=== PATIENT | female | born 1960 | race Caucasian/White ===

== ENCOUNTER 2025-05-24 16:19 | Observation (INO) | payer MEDICARE, SELFPAY ==
[2025-05-24] VITALS (10 sets, daily range): BP systolic 126–164; BP diastolic 46–75; PULSE 74–104; RESP 16–23; TEMP 36.9–37.3; O2SAT 87–99; BMI 53.1; BMI 58.8
--- NOTE | 2025-05-24 16:29 | CT_ITS ---
PROCEDURE INFORMATION: Exam: CT Abdomen And Pelvis With Contrast Exam date and time: 05/24/2025 5:22 PM Age: 65 years old Clinical indication: Abdominal pain; Additional info: Lower abdominal pain, n/v TECHNIQUE: Imaging protocol: Computed tomography of the abdomen and pelvis with contrast. Radiation optimization: All CT scans at this facility use at least one of these dose optimization techniques: automated exposure control; mA and/or kV adjustment per patient size (includes targeted exams where dose is matched to clinical indication); or iterative reconstruction. Contrast material: ISOVUE; Contrast volume: 90 ml; Contrast route: IV; COMPARISON: No relevant prior studies available. FINDINGS: Lungs: Calcified granuloma in the left lung base. Mild atelectasis of the left lung base. Pleural spaces: Small left pleural effusion. Heart: Mitral annular calcifications. Diaphragm: Moderate hiatal hernia. Liver: Unremarkable liver. Gallbladder and biliary ducts: Cholelithiasis. No biliary ductal dilation. Pancreas: Fatty replacement of pancreatic parenchyma. Spleen: Unremarkable spleen. Adrenal glands: Unremarkable adrenal glands. Kidneys and ureters: Symmetrically enhancing kidneys. Somewhat atrophic kidneys. No hydronephrosis. No urolithiasis. Stomach and bowel: No bowel obstruction. Colonic diverticulosis. Mild fat stranding along a diverticulum in the mid sigmoid colon. No extraluminal free air or abscess. Appendix: Normal. Intraperitoneal space: No free air. No free fluid. Vasculature: Moderate atherosclerotic calcification of the normal-caliber abdominal aorta. Lymph nodes: No enlarged lymph nodes. Urinary bladder: Unremarkable urinary bladder. Reproductive: Surgically absent uterus. No adnexal mass. Bones/joints: No acute osseous abnormality. Multilevel chronic degenerative changes of the spine. Soft tissues: Incompletely visualized fat-containing umbilical hernia with neck measuring 2.7 cm. Subcutaneous induration throughout the partially visualized left mid anterior abdominal wall. No fluid collection/abscess, though this region is largely excluded from field of view due to body habitus. IMPRESSION: 1. Mild fat stranding along a diverticulum in the mid sigmoid colon, suspicious for mild uncomplicated diverticulitis. 2. Subcutaneous induration throughout the partially visualized left mid anterior abdominal wall. No fluid collection/abscess is visualized, though this region is largely excluded from field of view due to body habitus. Recommend correlation for cellulitis. 3. Small left pleural effusion.
--- NOTE | 2025-05-24 16:29 | CT_ITS ---
PROCEDURE INFORMATION: Exam: CT Head Without Contrast Exam date and time: 05/24/2025 5:19 PM Age: 65 years old Clinical indication: Altered mental status/memory loss; Additional info: AMS TECHNIQUE: Imaging protocol: Computed tomography of the head without contrast. Total images: 659 Radiation optimization: All CT scans at this facility use at least one of these dose optimization techniques: automated exposure control; mA and/or kV adjustment per patient size (includes targeted exams where dose is matched to clinical indication); or iterative reconstruction. COMPARISON: No relevant prior studies available. FINDINGS: Brain: No acute intracranial hemorrhage, midline shift, or mass. Mild cortical atrophy. Remote left frontoparietal infarcts with encephalomalacia/gliosis. Additional mild remote white matter small-vessel ischemic changes. No acute territorial infarct. Basilar cisterns are preserved. Cerebral ventricles: No ventriculomegaly. Paranasal sinuses: Visualized sinuses are unremarkable. No fluid levels. Mastoid air cells: Visualized mastoid air cells are well aerated. Orbital cavities: Bilateral orbital lens replacement. Bones: Unremarkable. No acute fracture. Soft tissues: Unremarkable. Vasculature: Severe calcifications bilateral intracranial internal carotid arteries. Left intracranial internal carotid artery stent. IMPRESSION: 1. No acute intracranial abnormality. 2. Chronic intracranial findings.
--- NOTE | 2025-05-24 16:30 | CT_ITS ---
PROCEDURE INFORMATION: Exam: CTA Chest With Contrast Exam date and time: 05/24/2025 5:22 PM Age: 65 years old Clinical indication: Shortness of breath; Additional info: SOA TECHNIQUE: Imaging protocol: Computed tomographic angiography of the chest with contrast. Exam focused on the arteries. 3D rendering (Not supervised by radiologist): MIP and/or 3D reconstructed images were created by the technologist. Radiation optimization: All CT scans at this facility use at least one of these dose optimization techniques: automated exposure control; mA and/or kV adjustment per patient size (includes targeted exams where dose is matched to clinical indication); or iterative reconstruction. Contrast material: ISO 370; Contrast volume: 90 ml; Contrast route: INTRAVENOUS (IV); COMPARISON: No relevant prior studies available. FINDINGS: Tubes, catheters and devices: None. Pulmonary arteries: No central pulmonary embolism. Pulmonary arteries are normal in caliber. Aorta: No aortic aneurysm. No aortic dissection. Thyroid: Unremarkable. Trachea: Patent trachea and central airways. Lungs: No consolidation. No suspicious nodule. Calcified granuloma in the left lung base. Mild atelectasis of the left lung base. Pleural spaces: No pneumothorax. Small left pleural effusion. No right pleural effusion. Heart: No cardiomegaly. No pericardial effusion. Mitral annular calcifications are present. Esophagus: Moderate hiatal hernia and fluid-filled esophagus. Mediastinal space: Unremarkable. Lymph nodes: No mediastinal, hilar, or axillary lymphadenopathy. Bones/joints: No acute osseous abnormality. Multilevel chronic degenerative changes of the spine. Soft tissues: Unremarkable. IMPRESSION: 1. No central pulmonary embolism. Evaluation of the lobar, segmental, and subsegmental pulmonary artery branches is essentially nondiagnostic due to quantum mottle artifact secondary to patient body habitus, suboptimal contrast bolus, and motion artifact. Consider lower extremity Dopplers to exclude a potential embolic source or nuclear medicine perfusion examination if there is persistent high clinical suspicion. 2. Small left pleural effusion and mild atelectasis of the left lung base. 3. Moderate hiatal hernia and fluid-filled esophagus, concerning for reflux.
--- NOTE | 2025-05-24 16:34 | ED_ITS ---
Discharge Plan Disposition Patient Disposition: Admitted Condition: Fair Clinical Impressions Clinical Impression: Diverticul disease small and large intestine, no perforati or abscess Discharge ED Provider: Heidi Callaway General Chief Complaint: Weakness Stated Complaint: Dizzy, Weakness, Difficulty breathing Time Seen by Provider: 05/24/25 16:20 History of Present Illness HPI narrative: This is a 65-year-old female with no reported past medical history presenting the emergency department with EMS for altered mental status. They were called to the home for shortness of breath. Patient lives at home by herself. EMS reports that the home was well-kept, not in disarray. Patient normally mobilizes with a wheelchair. She states she went to religion this morning and then suddenly began to experience chills. She is currently complaining of epigastric pain with nausea. Denies any current headache, chest pain, shortness of breath, dysuria. She reports her last fall was in August. Home medications brought to the bedside by EMS including Brilinta, Lasix, hydrocodone, gabapentin, among others. Related Data Home Medications ?Medication ?Instructions ?Recorded ?Confirmed citalopram 40 mg tablet 40 mg PO DAILY 05/24/2501/09 ferrous sulfate 325 mg (65 mg 325 mg PO DAILY 05/24/25 05/24/25 iron) tablet (FeroSul) furosemide 40 mg tablet 40 mg PO DAILY 05/24/2501/09 gabapentin 300 mg capsule 300 mg PO TID 05/24/2505/24 insulin aspar prot-insulin aspart 50 unit SQ BID 05/2405/24/25 100 unit/mL (70-30) subcutaneous pen (Novolog Mix 70-30FlexPen U-100) levothyroxine 112 mcg tablet 112 mcg PO DAILY 05/24/25 05/24/25 losartan 25 mg tablet 25 mg PO DAILY 05/24/2501/09 nitroglycerin 0.4 mg sublingual 0.4 mg sublingual Q5M PRN Chest 05/24/25 05/24/25 tablet Pain omeprazole 40 mg capsule,delayed 40 mg PO DAILY 05/24/25 release rosuvastatin 20 mg tablet 20 mg PO HS 05/24/25 5 ticagrelor 60 mg tablet (Brilinta) 60 mg PO DAILY 01/0905/24/25 Allergies Allergy/AdvReac Type Severity Reaction Status Date / Time amoxicillin Allergy Hives Verified 05/24/25 21:21 ciprofloxacin Allergy Hives Verified 05/24/25 21:21 metformin Allergy Rash Verified 05/24/25 21:21 sulfamethoxazole (From Allergy Hives Verified 05/24/25 16:38 Bactrim) trimethoprim (From Bactrim) Allergy Hives Verified 05/24/25 16:38 PFSH [facility] Disclaimer: The information contained in this section may have been updated after the patient was seen, as this information can be updated by other users. Social History Smoking Status: Never smoker alcohol intake: never current occupational status: other Travel in the last 8 weeks?: None ROS Obtained: Yes All systems reviewed & no additional complaints except as documented Physical Exam General General appearance: alert, in no apparent distress and obese Head Head exam: atraumatic Eye Eye exam: Present normal appearance, PERRL, EOMI and miosis ENT ENT exam: Present mucous membranes moist Neck Neck exam: Present normal inspection and full ROM; Absent tenderness Chest Chest inspection: Present symmetric chest wall rise; Absent tenderness Respiratory Respiratory exam: Absent respiratory distress, wheezes or accessory muscle use Cardiovascular Cardiovascular exam: Present regular rate and normal rhythm Abdominal Exam Abdominal exam: Present soft; Absent guarding Abdominal tenderness: Present epigastrium Extremities Exam Extremities exam: Present full ROM and edema (Bilateral lower extremity edema, nonpitting, with chronic venous stasis changes); Absent tenderness Neurological Exam Neurological exam: Present alert and oriented X3 Skin Skin exam: Present warm and dry HEART Score HEART Score HEART Score assessment performed?: Yes History (anamnesis): Slightly suspicious ECG: Non-specific disturbance Age: >65 years Risk factors: 3 or more risk factors Troponin: 1-3x normal limit HEART Score: 6 Critical Care Critical Care Time Critical Care Time: No Medical Decision Making Mario Inquiry Pt receiving controlled substance: Yes Mario was queried for this patient: No Risks and benefits of using a controlled substance: were discussed with pt by me Vital Signs Vital Signs: 05/24/25 16:24 05/24/25 16:29 05/24/25 16:34 Temperature 98.5 F Temperature Source Oral Pulse Rate 101 H 100 H Pulse Rate [Right] 104 H Respiratory Rate 23 Blood Pressure 150/49 H Blood Pressure [Right Arm] 150/49 H Blood Pressure Mean [Right Arm] 82 Blood Pressure Source [Right Arm] Automatic Cuff Blood Pressure Position [Right Arm] Supine 02 Sat by Pulse Oximetry 92 L 87 L 93 L Oxygen Delivery Method Nasal Cannula Room Air Oxygen Flow Rate (LPM) 2 05/24/25 16:53 05/24/25 17:00 05/24/25 17:42 Temperature Temperature Source Pulse Rate 97 H 97 H 95 H Pulse Rate [Right] Respiratory Rate Blood Pressure 139/46 L 139/52 L 163/71 H Blood Pressure [Right Arm] Blood Pressure Mean [Right Arm] Blood Pressure Source [Right Arm] Blood Pressure Position [Right Arm] 02 Sat by Pulse Oximetry 97 98 98 Oxygen Delivery Method Nasal Cannula Nasal Cannula Nasal Cannula Oxygen Flow Rate (LPM) 2 2 2 05/24/25 18:00 05/24/25 18:30 05/24/25 20:43 Temperature 98.8 F Temperature Source Oral Pulse Rate 96 H 93 H 74 Pulse Rate [Right] Respiratory Rate 18 Blood Pressure 153/73 H 164/73 H 144/75 H Blood Pressure [Right Arm] Blood Pressure Mean [Right Arm] Blood Pressure Source [Right Arm] Blood Pressure Position [Right Arm] 02 Sat by Pulse Oximetry 99 99 Oxygen Delivery Method Room Air Room Air Room Air Oxygen Flow Rate (LPM) Lab Data Labs: Lab Results 05/24/25 16:32: WBC 9.1, RBC 4.03 L, Hgb 11.7 L, Hct 36.0 L, MCV 89.3, MCH 29.0, MCHC 32.5, RDW 13.7, Plt Count 219, MPV 10.3, Neut % (Auto) 86.3 H, Lymph % (Auto) 8.4 L, [place] % (Auto) 4.6, Eos % (Auto) 0.3, Baso % (Auto) 0.1, Neut # (Auto) 7.8, Lymph # (Auto) 0.8, [place] # (Auto) 0.4, Eos # (Auto) 0.0, Baso # (Auto) 0.0, VBG pH 7.43 H, VBG pCO2 44.0, VBG pO2 57.2 H, VBG HCO3 28.5, VBG Total CO2 29.8 H, VBG O2 Saturation 91.1 H, VBG Base Excess 4.2 H, VBG Lactic Acid 2.0, Sodium 130 L, Potassium 5.7 H, Chloride 100, Carbon Dioxide 26, Anion Gap 9.7, BUN 18 H, Creatinine 0.90, Estimated Creat Clear 45, Estimated GFR 62, Est GFR ( Amer) 76, Glucose 97, Calcium 8.2 L, Total Bilirubin 1.4 H, AST 45 H, ALT 15, Alkaline Phosphatase 74, Troponin I 0.03, NT-Pro-B Natriuret Pep 1660 H, Total Protein 8.0, Albumin 3.9, Globulin 4.1 H, Albumin/Globulin Ratio 1.0 L, Lipase 23, Plasma/Serum Alcohol < 10 05/24/25 16:44: SARS-CoV-2 (PCR) Not detected, Influenza A Untype (PCR) Not detected, Influenza Type B (PCR) Not detected 05/24/25 17:38: Urine Color Yellow, Urine Appearance Clear, Urine pH 6.5, Ur Specific [place] 1.010, Urine Protein Negative, Urine Glucose (UA) Negative, Urine Ketones Negative, Urine Blood Negative, Urine Nitrate Negative, Urine Bilirubin Negative, Urine Urobilinogen 1.0, Ur Leukocyte Esterase Negative, Urine RBC 3-5, Urine WBC None, Ur Squamous Epith Cells None, Urine Bacteria None, Urine Opiates Screen Negative, Urine Methadone Screen Negative, Ur Barbituates Screen Negative, Ur Phencyclidine Scrn Negative, Ur Amphetamines Screen Negative, U Benzodiazepines Scrn Negative, Urine Cocaine Screen Negative, U Marijuana (THC) Screen Negative 05/24/25 16:32 05/24/25 16:32 Response Orders (Tests/Meds): ED MEDICATIONS Generic Name Dose Route Start Last Admin Trade Name Freq PRN Reason Stop Dose Admin Acetaminophen 650 mg 05/24/25 20:23 Acetaminophen 325mg Tab PO 06/23/25 20:22 Q4HP PRN Fever or Mild Pain (1-3) Enoxaparin Sodium 40 mg 05/25/25 09:00 Enoxaparin 40mg/0.4ml Syringe SUBCUT 06/24/25 08:59 DAILY SALOMON Guaifenesin 600 mg 05/24/25 21:00 05/24/25 21:14 Guaifenesin 600 Mg Tab.Er.12h PO 06/23/25 20:59 600 mg BID SALOMON Administration Discontinued Medications Generic Name Dose Route Start Last Admin Trade Name Freq PRN Reason Stop Dose Admin Furosemide 40 mg 05/24/25 19:08 05/24/25 19:34 Furosemide 40mg/4ml Vial IV 05/24/25 19:09 40 mg ONCE ONE Administration Iopamidol 90 ml 05/24/25 17:31 05/24/25 17:32 Iopamidol-370 (76%);100ml Bottle IV 05/24/25 17:32 90 ml ONCE ONE Administration Sodium Chloride 50 ml 05/24/25 17:31 05/24/25 17:32 0.9 % Sodium Chloride 50 Ml Vial IV 05/24/25 17:32 50 ml ONCE ONE Administration Sodium Chloride 10 ml 05/24/25 17:31 05/24/25 17:32 Sodium Chloride 0.9% 10ml Syr (Rad Only) IV 05/24/25 17:32 10 ml ONCE ONE Administration ORDERS Category Date Time Status CT abdomen pelvis w con Stat Cat Scan 05/24/25 16:[address] angio chest PE protocol Stat Cat Scan 05/24/25 16:[address] head/brain wo con Stat Cat Scan 05/24/25 16:29 Completed BNP [NT Pro Brain Natriuretic Pep.] Stat Lab 05/24/25 16:32 Completed CBC w/Auto Diff [Complete Blood Count Auto Diff] Stat Lab 05/24/25 16:32 Completed CMP [Comprehensive Metabolic Panel] Stat Lab 05/24/25 16:32 Completed Drug Screen,Urine Stat Lab 05/24/25 17:38 Completed Ethanol [Ethyl Alcohol] Stat Lab 05/24/25 16:32 Completed Lactate Venous Stat Lab 05/24/25 17:06 Ordered Lipase Stat Lab 05/24/25 16:32 Completed Rapid PCR Covid and Flu A/B Stat Lab 05/24/25 16:44 Completed Troponin I Q3H Lab 05/24/25 16:32 Completed UA [Urinalysis and Microscopic] Stat Lab 05/24/25 17:38 Completed Urine Culture Stat Micro 05/24/25 17:40 Received VBG [Venous Blood Gas] Stat RT 05/24/25 16:32 Completed ECG Data Tracing #1: Attestation: I reviewed this ECG and interpreted as documented below: ECG Narrative: EKG shows normal sinus rhythm at a rate of 95. Normal GA, QRS, and QTc intervals. Normal axis. No acute ST elevations or signs of acute subendocardial or transmural ischemia. MDM Narrative Medical Decision Narrative: In summary, this is a 65 y/o female presenting the emergency department for dizziness, weakness, shortness of air.. Differential diagnosis includes but is not limited to: Pneumonia, heart failure, atypical presentation of ACS, diverticulitis, pancreatitis, constipation, UTI, polypharmacy, among others On my initial assessment, the patient is hemodynamically stable. She is intermittently hypoxic however, and was placed on oxygen via nasal cannula. No increased work of breathing. She answers all orientation questions correctly, however does seem intermittently confused and demonstrating repetitive questioning. Clinically, I am most concerned for potential heart failure exacerbation considering her lower extremity edema and chronic venous stasis changes with hypoxia. She does bring in her entire home medications supply. There are prescriptions for gabapentin and oxycodone which could be contributing to her altered mental status. She denies taking any additional doses above what she is prescribed. ECG personally interpreted as listed above no acute ischemic changes. Initial troponin 0.03. BNP mildly elevated at 1660 Patient received IV Lasix for treatment. Labs personally interpreted which demonstrate no leukocytosis and a mild normocytic anemia. Platelet count within normal limits. VBG shows a mild metabolic alkalosis. CMP notable for potassium of 5.7. Of note, EKG shows no T wave changes. Total bilirubin is mildly elevated at 1.4, however this is felt to not likely be clinically contributory. Lipase within normal limits. UA with no acute infectious process. Negative UDS. Negative COVID/flu/RSV. Head CT shows no obvious intracranial hemorrhage or other acute process. Radiology was in agreement. Chest CTA personally interpreted with evidence of small left pleural effusion. CT of the abdomen and pelvis shows potential mild diverticulitis without evidence of abscess or perforation. Radiology reads agreement. On my reassessment, the patient remains hemodynamically stable, however she is still requiring oxygen via nasal cannula. I discussed likely diagnosis of diverticulitis and heart failure with acute exacerbation and recommended hospital admission. The patient is comfortable with this plan. I had an interactive discussion with admitting hospitalist. They agreed to admit to their service.
[2025-05-24 16:40] LABS: Lactate Venous 2.0 mmol/L (0.4-2.0); VBG HCO3 28.5 mmol/L (23-30); VBG PCO2 44.0 mmol/L (35-51); VBG PH 7.43 mmol/L (7.31-7.41); VBG PO2 57.2 mmol/L (28-40)
--- NOTE | 2025-05-24 16:43 | ECG_ITS ---
APPROVED REPORT Exam: Resting ECG HR:95 bpm ECG Measurements Heart Rate 95 AXES NM 177 P 46 QRSd 94 QRS -31 QT 365 T 59 QTc 418 Conclusion SINUS RHYTHM LEFT AXIS DEVIATION [QRS AXIS < -30] PATTERN CONSISTENT WITH PULMONARY DISEASE No STEMI Electronically signed by : BANDAR ALCANTAR, 05/28/2025 03:06:17
[2025-05-24 16:44] LABS: Hematocrit 36.0 % (37.0-47.0); Hemoglobin 11.7 g/dL (12.2-16.2); Immature Granulocytes % 0.3 %; Mean Corpuscular HGB Conc 32.5 g/dL (31.8-35.4); Mean Corpuscular Hemoglobin 29.0 pg (27.0-31.2); Mean Corpuscular Volume 89.3 fl (81-99); Nucleated Red Blood Cells % 0 %; Platelet Count 219 K/mm3 (142-424); Red Blood Count 4.03 M/mm3 (4.20-5.40); Red Cell Distribution Width-SD 44.2 fL; White Blood Count 9.1 K/mm3 (4.8-10.8)
[2025-05-24 16:46] LABS: Coronavirus 19, PCR Not Detected (NotDetected); Influenza A, PCR Not Detected (NotDetected); Influenza B, PCR Not Detected (NotDetected)
[2025-05-24 16:54] LABS: Alanine Aminotransferase 15 U/L (12-78); Albumin Level 3.9 g/dl (3.5-5.0); Albumin/Globulin Ratio 1.0 (1.1-1.8); Alkaline Phosphatase 74 U/L (38-126); Anion Gap 9.7 mEq/L (5-15); Aspartate Amino Transferase 45 U/L (14-36); Bilirubin,Total 1.4 mg/dl (0.2-1.3); Blood Urea Nitrogen 18 mg/dl (7-17); Calcium 8.2 mg/dl (8.4-10.2); Carbon Dioxide 26 mmol/L (22.0-30.0); Chloride 100 mmol/L (98-107); Creatinine Clearance Estimated 45 mL/min (50-200); Creatinine,Serum 0.90 mg/dl (0.52-1.04); Estimated Glomerular Filt Rate 62 ml/min (>60); GFR (African American) 76 ML/MIN (>60); Globulin 4.1 g/dL (1.3-3.2); Glucose 97 mg/dl (74-100); Lipase 23 U/L (23-300); Potassium 5.7 mmoL/L (3.5-5.1); Sodium 130 mmol/L (136-145); Total Protein,Serum 8.0 g/dl (6.3-8.2)
[2025-05-24 17:05] LABS: Troponin I 0.03 ng/ml (0.00-0.034)
--- NOTE | 2025-05-24 17:05 | PC.NURSE ---
attempted to cath pt for urine sample. pt requested nurses to stop. raphael rojo placed , and notified.
--- OUTSIDE RECORDS SUMMARY | 2025-05-24 17:05 | XMS_ITS | Data Portability ---
Author Organization [facility] Address [address] [place] [address] Assessment Encounter Date Assessment Date Assessment LastModified by Organization Details LastModified Time 04/28/2024 04/28/2024 Medicare Preventive Services Check List reviewed and printed for patient. [email or web address] Not available 04/28/2024 10:11:15 Plan of Treatment Reminders Order Date Submit Date Provider Last Modified By Organization Details Last Modified Time Details Appointments None recorded. Lab venipunctur e 2024 025 [facility], [address], [place] [address], [place], [address], 13:03:07 drug screen, urine 2024 025 [facility], [address], [place], [address], 5 10:28:25 HbA1c (hemoglobin A1c), blood 2024 025 S[facility], [address], [address], [place], [address], 5 09:08:06 CMP, serum or plasma 2024 025 MARIO [facility], [address], [place] [address], [place], [address], 5 09:08:05 CBC w/ auto diff 2024 025 MARIO [facility], [address], [place] [address], [place], [address], 5 09:08:04 lipid panel, serum 2024 025 MARIO [facility], [address], [place] [address], [place], [address], 5 09:08:05 venipunctur e 2024 025 cbharvey [facility], [address], [address] [address], [place], [address], 5 08:21:21 vitamin D, 25-hydroxy, total, serum 2024 025 MARIO [facility], [address], [address] [address], [place], [address], 5 07:07:16 HbA1c (hemoglobin A1c), blood 2024 025 MARIO [facility], [address], [place] [address], [place], [address], 5 07:07:16 CMP, serum or plasma 2024 025 MARIO [facility], [address], [place] [address], [place], [address], 5 07:07:15 CBC w/ auto diff 2024 025 MARIO [facility], [address], [place] [address], [place], [address], 5 07:07:15 lipid panel, serum 2024 025 MARIO [facility], [address], [place] [address], [place], [address], 5 07:07:15 TSH + free T4, serum 2024 025 MARIO [facility], [address], [place] [address], [place], [address], 07:07:14 Referral None recorded. Procedures None recorded. Surgeries None recorded. Imaging None recorded. Medication Orders gabapentin 300 mg capsule 2024 [facility], [address], [place], [address], 16:00:11 Vitamin D2 1,250 mcg (50,000 unit) capsule 2024 025 [facility], [address] [place] [address], [address], 5 14:16:28 Novolog Mix 70-30 FlexPen U-100 Insulin 100 unit/mL subcutaneou s pen [address], [address], 5 14:16:28 DropSafe Alcohol Prep Pads 2024 025 [facility], [address] [place] [address], [address], 5 14:16:27 gabapentin 300 mg capsule [address], [address], 5 14:16:31 citalopram 40 mg tablet [address], [address], 5 14:16:29 Patient TargetsNo targets recorded. Patient Instructions Encounter Date Encounter Id Patient Instructions Last Modified By Organization Details Last Modified Time 04/28/2024 [id number] advance directives: care instructions efryman Not available 04/28/2024 13:54:36 learning about depression efryman Not available 04/28/2024 13:54:36 preventing falls : care instructions rama Not available 04/28/2024 13:54:36 medicare preventive services guide rama Not available 04/28/2024 13:54:36 Reason for Referral None Reported. Results Created Date Observation Date Name Description Value Unit Range Abnormal Flag Note LastModifiedBy Organization Detail LastModifiedTime 07/25/1907/26/2024 TSH+F REE T4 TSH 0.971 uIU/m L 0.450- 4.500 normal Not Available [facility] ([facility]) [address] [place], [address], 07/26/2024 07:07:14 07/25/1907/26/2024 TSH+F REE T4 T4,free(dire ct) 1.25 NG/dL 0.82-1 .77 normal Not Available [facility] ([facility]) [address] [place], [address], 07/26/2024 07:07:14 07/25/1907/26/2024 CBC WITH DIFFE RENTI AL/PL ATELE T WBC 6.6 x10e3 /uL 3.4-10 .8 normal Not Available [facility] ([facility]) [address] [place], [address], 07/26/2024 07:07:15 07/25/1907/26/2024 CBC WITH DIFFE RENTI AL/PL ATELE T RBC 4.06 x10e6 /uL 3.77-5 .28 normal Not Available [facility] ([facility]) [address] [place], [address], 07/26/2024 07:07:15 07/25/1907/26/2024 CBC WITH DIFFE RENTI AL/PL ATELE T hemoglobin 11.6 g/dL 11.1-1 5.9 normal Not Available [facility] ([facility]) [address] [place], [address], 07/26/2024 07:07:15 07/25/19 25 07/26/2024 CBC WITH DIFFE RENTI AL/PL ATELE T hematocrit 37.3 % 34.0-4 6.6 normal Not Available [facility] ([facility]) [address] [facility], [place], [address], 07/26/2024 07:07:15 07/25/19 25 07/26/2024 CBC WITH DIFFE RENTI AL/PL ATELE T MCV 92 fL 79-97 normal Not Available [facility] ([facility]) [address] [facility], [place], [address], 07/26/2024 07:07:15 07/25/19 25 07/26/2024 CBC WITH DIFFE RENTI AL/PL ATELE T MCH 28.6 pg 26.6-3 3.0 normal Not Available [facility] ([facility]) [address] [facility], [place], [address], 07/26/2024 07:07:15 07/25/19 25 07/26/2024 CBC WITH DIFFE RENTI AL/PL ATELE T MCHC 31.1 g/dL 31.5-3 5.7 below low normal Not Available [facility] ([facility]) [address] [place], [address], 07/26/2024 07:07:15 07/25/19 25 07/26/2024 CBC WITH DIFFE RENTI AL/PL ATELE T RDW 13.0 % 11.7-1 5.4 Not Available [facility] ([facility]) [address] [place], [address], 07/26/2024 07:07:15 07/25/19 25 07/26/2024 CBC WITH DIFFE RENTI AL/PL ATELE T platelets 233 x10e3 /uL 150-45 0 normal Not Available [facility] ([facility]) [address] [place], [address], 07/26/2024 07:07:15 07/25/19 25 07/26/2024 CBC WITH DIFFE RENTI AL/PL ATELE T neutrophils 63 % not estab. normal Not Available [facility] ([facility]) [address] [facility], [place], [address], 07/26/2024 07:07:15 07/25/19 25 07/26/2024 CBC WITH DIFFE RENTI AL/PL ATELE T lymphs 28 % not estab. normal Not Available [facility] ([facility]) [address] [facility], [place], [address], 07/26/2024 07:07:15 07/25/19 25 07/26/2024 CBC WITH DIFFE RENTI AL/PL ATELE T monocytes 7 % not estab. normal Not Available [facility] ([facility]) [address] [facility], [place], [address], 07/26/2024 07:07:15 07/25/19 25 07/26/2024 CBC WITH DIFFE RENTI AL/PL ATELE T eos 1 % not estab. normal Not Available [facility] ([facility]) [address] [facility], [place], [address], 07/26/2024 07:07:15 07/25/19 25 07/26/2024 CBC WITH DIFFE RENTI AL/PL ATELE T basos 1 % not estab. normal Not Available [facility] ([facility]) [address] [facility], [place], [address], 07/26/2024 07:07:15 07/25/19 25 07/26/2024 CBC WITH DIFFE RENTI AL/PL ATELE T immature cells GRAIN ELEVATOR MAN Not Available [facility] ([facility]) [address] [facility], [place], [address], 07/26/2024 07:07:15 07/25/19 25 07/26/2024 CBC WITH DIFFE RENTI AL/PL ATELE T neutrophils (absolute) 4.1 x10e3 /uL 1.4-7. 0 normal Not Available [facility] ([facility]) [address] [facility], [place], [address], 07/26/2024 07:07:15 07/25/19 25 07/26/2024 CBC WITH DIFFE RENTI AL/PL ATELE T lymphs (absolute) 1.8 x10e3 /uL 0.7-3. 1 normal Not Available [facility] ([facility]) [address] [facility], [place], [address], 07/26/2024 07:07:15 07/25/19 25 07/26/2024 CBC WITH DIFFE RENTI AL/PL ATELE T monocytes(ab solute) 0.4 x10e3 /uL 0.1-0. 9 normal Not Available [facility] ([facility]) [address] [place], [address], 07/26/2024 07:07:15 07/25/19 25 07/26/2024 CBC WITH DIFFE RENTI AL/PL ATELE T eos (absolute) 0.1 x10e3 /uL 0.0-0. 4 normal Not Available [facility] ([facility]) [address] [facility], [place], [address], 07/26/2024 07:07:15 07/25/19 25 07/26/2024 CBC WITH DIFFE RENTI AL/PL ATELE T baso (absolute) 0.0 x10e3 /uL 0.0-0. 2 normal Not Available [facility] ([facility]) [address] [place], [address], 07/26/2024 07:07:15 07/25/19 25 07/26/2024 CBC WITH DIFFE RENTI AL/PL ATELE T immature granulocytes 0 % not estab. Not Available [facility] ([facility]) [address] [place], [address], 07/26/2024 07:07:15 07/25/19 25 07/26/2024 CBC WITH DIFFE RENTI AL/PL ATELE T immature grans (abs) 0.0 x10e3 /uL 0.0-0. 1 Not Available [facility] ([facility]) [address] [facility], [place], [address], 07/26/2024 07:07:15 07/25/19 25 07/26/2024 CBC WITH DIFFE RENTI AL/PL ATELE T NRBC GRAIN E[employer] MAN Not Available [facility] ([facility]) [address] [facility], [place], [address], 07/26/2024 07:07:15 07/25/19 25 07/26/2024 CBC WITH DIFFE RENTI AL/PL ATELE T hematology comments: GRAIN ELEVATOR MAN Not Available [facility] ([facility]) [address] [facility], [place], [address], 07/26/2024 07:07:15 07/25/19 25 07/26/2024 COMP. METAB OLIC PANEL (14) glucose 124 mg/dL 70-99 above high normal Not Available [facility] ([facility]) [address] [facility], [place], [address], 07/26/2024 07:07:15 07/25/19 25 07/26/2024 COMP. METAB OLIC PANEL (14) BUN 17 mg/dL 8-27 normal Not Available [facility] ([facility]) [address] [facility], [place], [address], 07/26/2024 07:07:15 07/25/19 25 07/26/2024 COMP. METAB OLIC PANEL (14) creatinine 0.98 mg/dL 0.57-1 .00 normal Not Available [facility] ([facility]) [address] [facility], [place], [address], 07/26/2024 07:07:15 07/25/19 25 07/26/2024 COMP. METAB OLIC PANEL (14) eGFR 64 mL/mi n/1.7 3 >59 normal Not Available [facility] ([facility]) [address] [facility] [place], [address], 07/26/2024 07:07:15 07/25/19 25 07/26/2024 COMP. METAB OLIC PANEL (14) BUN/creatini ne ratio 17 12-28 normal Not Available [facility] ([facility]) [address] [facility] [place], [address], 07/26/2024 07:07:15 07/25/19 25 07/26/2024 COMP. METAB OLIC PANEL (14) sodium 139 mmol/ L 134-14 4 normal Not Available [facility] ([facility]) [address] [facility] [place], [address], 07/26/2024 07:07:15 07/25/19 25 07/26/2024 COMP. METAB OLIC PANEL (14) potassium 4.7 mmol/ L 3.5-5. 2 normal Not Available [facility] ([facility]) [address] [place], [address], 07/26/2024 07:07:15 07/25/19 25 07/26/2024 COMP. METAB OLIC PANEL (14) chloride 100 mmol/ L 96-106 normal Not Available [facility] ([facility]) [address] [facility] [place], [address], 07/26/2024 07:07:15 07/25/19 25 07/26/2024 COMP. METAB OLIC PANEL (14) carbon dioxide, total 28 mmol/ L 20-29 normal Not Available [facility] ([facility]) [address] [facility] [place], [address], 07/26/2024 07:07:15 07/25/19 25 07/26/2024 COMP. METAB OLIC PANEL (14) calcium 8.8 mg/dL 8.7-10 .3 normal Not Available [facility] ([facility]) [address] [facility], [place], [address], 07/26/2024 07:07:15 07/25/19 25 07/26/2024 COMP. METAB OLIC PANEL (14) protein, total 6.4 g/dL 6.0-8. 5 normal Not Available [facility] ([facility]) [address] [place], [address], 07/26/2024 07:07:15 07/25/19 25 07/26/2024 COMP. METAB OLIC PANEL (14) albumin 3.6 g/dL 3.9-4. 9 below low normal Not Available [facility] ([facility]) [address] [place], [address], 07/26/2024 07:07:15 07/25/19 25 07/26/2024 COMP. METAB OLIC PANEL (14) globulin, total 2.8 g/dL 1.5-4. 5 Not Available [facility] ([facility]) [address] [place], [address], 07/26/2024 07:07:15 07/25/19 25 07/26/2024 COMP. METAB OLIC PANEL (14) bilirubin, total 0.4 mg/dL 0.0-1. 2 normal Not Available [facility] ([facility]) [address] [place], [address], 07/26/2024 07:07:15 07/25/19 25 07/26/2024 COMP. METAB OLIC PANEL (14) alkaline phosphatase 95 IU/L 44-121 normal Not Available [facility] ([facility]) [address] [place], [address], 07/26/2024 07:07:15 07/25/19 25 07/26/2024 COMP. METAB OLIC PANEL (14) AST (SGOT) 12 IU/L 0-40 normal Not Available [facility] ([facility]) [address], [place], [address], 07/26/2024 07:07:15 07/25/19 25 07/26/2024 COMP. METAB OLIC PANEL (14) ALT (SGPT) 6 IU/L 0-32 normal Not Available [facility] ([facility]) [address] [facility] [place], [address], 07/26/2024 07:07:15 07/25/19 25 07/26/2024 LIPID PANEL cholesterol, total 208 mg/dL 100-19 9 above high normal Not Available [facility] ([facility]) [address] [facility] [place], [address], 07/26/2024 07:07:15 07/25/19 25 07/26/2024 LIPID PANEL triglyceride s 139 mg/dL 0-149 normal Not Available [facility] ([facility]) [address] [place], [address], 07/26/2024 07:07:15 07/25/19 25 07/26/2024 LIPID PANEL HDL cholesterol 44 mg/dL >39 normal Not Available [facility] ([facility]) [address] [place], [address], 07/26/2024 07:07:15 07/25/19 25 07/26/2024 LIPID PANEL VLDL cholesterol gabriela 25 mg/dL 5-40 Not Available [facility] ([facility]) [address] [place], [address], 07/26/2024 07:07:15 07/25/19 25 07/26/2024 LIPID PANEL LDL chol calc ([facility]) 139 mg/dL 0-99 above high normal Not Available [facility] ([facility]) [address] [place], [address], 07/26/2024 07:07:15 07/25/19 25 07/26/2024 LIPID PANEL LDL calc comment: GRAIN ELEVATOR MAN Not Available [facility] ([facility]) [address] [facility], [place], [address], 07/26/2024 07:07:15 07/25/19 25 07/26/2024 HEMOG LOBIN A1C hemoglobin A1C 9.5 % 4.8-5. 6 above high normal Predi abete s: 5.7 - 6.4 Diabe deniz: >6.4 Glyce halley contr ol for adult s with diabe deniz: <7.0 Not Available [facility] ([facility]) [address] [facility], [place], [address], 07/26/2024 07:07:16 07/25/19 25 07/26/2024 VITAM IN D, 25-HY DROXY vitamin D, 25-hydroxy 45.2 NG/mL 30.0-1 00.0 Vitam in D defic iency has been defin ed by the Insti tute of Medic ine and an Endoc rine Socie ty pract ice guide line as a level of serum 25-OH vitam in D less than 20 ng/mL (1,2) . The Endoc rine Socie ty went on to furth er defin e vitam in D insuf ficie ncy as a level betwe en 21 and 29 ng/mL (2). 1. IOM (Inst itute of Medic ine). 2009. Dieta ry refer ence intak es for calci um and D. Violeta major [place]: The [facility] . 2. Sheila decker MF, Luis Fernando betts [place], Richard off-F errar i WILEY, et al. Evalu ation , treat ment, and preve ntion of vitam in D defic iency : an Endoc rine Socie ty clini gabriela pract ice guide line. JCEM. 2010; 96(7) :1911 -30. Not Available [facility] ([facility]) [address] [facility], [place], [address], 07/26/2024 07:07:16 07/25/19 25 07/26/2024 PLEAS E NOTE please note Commen t The date and/o r time of colle ction was not indic ated on the requi sitio n as requi red by state and samuel al law. The date of recei pt of the speci men was used as the colle ction date if not suppl ied. Not Available [facility] ([facility]) [address] [facility] [place], [address], 07/26/2024 07:07:16 01/02/2001/02/2025 CBC WITH DIFFE RENTI AL/PL ATELE T WBC 7.7 x10e3 /uL 3.4-10 .8 normal Not Available [facility] ([facility]) [address] [facility] [place], [address], 01/02/2025 09:08:04 01/02/2001/02/2025 CBC WITH DIFFE RENTI AL/PL ATELE T RBC 4.16 x10e6 /uL 3.77-5 .28 normal Not Available [facility] ([facility]) [address] [facility] [place], [address], 01/02/2025 09:08:04 01/02/2001/02/2025 CBC WITH DIFFE RENTI AL/PL ATELE T hemoglobin 11.8 g/dL 11.1-1 5.9 normal Not Available [facility] ([facility]) [address] [place], [address], 01/02/2025 09:08:04 01/02/2001/02/2025 CBC WITH DIFFE RENTI AL/PL ATELE T hematocrit 39.1 % 34.0-4 6.6 normal Not Available [facility] ([facility]) [address] [facility] [place], [address], 01/02/2025 09:08:04 01/02/2001/02/2025 CBC WITH DIFFE RENTI AL/PL ATELE T MCV 94 fL 79-97 normal Not Available [facility] ([facility]) [address] [place], [address], 01/02/2025 09:08:04 01/02/20 25 01/02/2025 CBC WITH DIFFE RENTI AL/PL ATELE T MCH 28.4 pg 26.6-3 3.0 normal Not Available [facility] ([facility]) [address] [facility], [place], [address], 01/02/2025 09:08:04 01/02/20 25 01/02/2025 CBC WITH DIFFE RENTI AL/PL ATELE T MCHC 30.2 g/dL 31.5-3 5.7 below low normal Not Available [facility] ([facility]) [address] [facility], [place], [address], 01/02/2025 09:08:04 01/02/2001/02/2025 CBC WITH DIFFE RENTI AL/PL ATELE T RDW 13.4 % 11.7-1 5.4 Not Available [facility] ([facility]) [address] [facility], [place], [address], 01/02/2025 09:08:04 01/02/2001/02/2025 CBC WITH DIFFE RENTI AL/PL ATELE T platelets 217 x10e3 /uL 150-45 0 normal Not Available [facility] ([facility]) [address] [facility], [place], [address], 01/02/2025 09:08:04 01/02/2001/02/2025 CBC WITH DIFFE RENTI AL/PL ATELE T neutrophils 62 % not estab. normal Not Available [facility] ([facility]) [address] [place], [address], 01/02/2025 09:08:04 01/02/20 25 01/02/2025 CBC WITH DIFFE RENTI AL/PL ATELE T lymphs 31 % not estab. normal Not Available [facility] ([facility]) [address] [place], [address], 01/02/2025 09:08:04 01/02/20 25 01/02/2025 CBC WITH DIFFE RENTI AL/PL ATELE T monocytes 6 % not estab. normal Not Available [facility] ([facility]) [address] [facility], [place], [address], 01/02/2025 09:08:04 01/02/20 25 01/02/2025 CBC WITH DIFFE RENTI AL/PL ATELE T eos 1 % not estab. normal Not Available [facility] ([facility]) [address] [facility], [place], [address], 01/02/2025 09:08:04 01/02/20 25 01/02/2025 CBC WITH DIFFE RENTI AL/PL ATELE T basos 0 % not estab. normal Not Available [facility] ([facility]) [address] [place], [address], 01/02/2025 09:08:04 01/02/20 25 01/02/2025 CBC WITH DIFFE RENTI AL/PL ATELE T immature cells GRAIN ELEVATOR MAN Not Available [facility] ([facility]) [address] [place], [address], 01/02/2025 09:08:04 01/02/20 25 01/02/2025 CBC WITH DIFFE RENTI AL/PL ATELE T neutrophils (absolute) 4.7 x10e3 /uL 1.4-7. 0 normal Not Available [facility] ([facility]) [address] [place], [address], 01/02/2025 09:08:04 01/02/20 25 01/02/2025 CBC WITH DIFFE RENTI AL/PL ATELE T lymphs (absolute) 2.4 x10e3 /uL 0.7-3. 1 normal Not Available [facility] ([facility]) [address] [place], [address], 01/02/2025 09:08:04 01/02/20 25 01/02/2025 CBC WITH DIFFE RENTI AL/PL ATELE T monocytes(ab solute) 0.5 x10e3 /uL 0.1-0. 9 normal Not Available [facility] ([facility]) [address] [facility], [place], [address], 01/02/2025 09:08:04 01/02/20 25 01/02/2025 CBC WITH DIFFE RENTI AL/PL ATELE T eos (absolute) 0.1 x10e3 /uL 0.0-0. 4 normal Not Available [facility] ([facility]) [address] [facility], [place], [address], 01/02/2025 09:08:04 01/02/20 25 01/02/2025 CBC WITH DIFFE RENTI AL/PL ATELE T baso (absolute) 0.0 x10e3 /uL 0.0-0. 2 normal Not Available [facility] ([facility]) [address] [facility], [place], [address], 01/02/2025 09:08:04 01/02/2001/02/2025 CBC WITH DIFFE RENTI AL/PL ATELE T immature granulocytes 0 % not estab. Not Available [facility] ([facility]) [address] [facility], [place], [address], 01/02/2025 09:08:04 01/02/20 25 01/02/2025 CBC WITH DIFFE RENTI AL/PL ATELE T immature grans (abs) 0.0 x10e3 /uL 0.0-0. 1 Not Available [facility] ([facility]) [address] [facility], [place], [address], 01/02/2025 09:08:04 01/02/20 25 01/02/2025 CBC WITH DIFFE RENTI AL/PL ATELE T NRBC GRAIN ELEV[employer] MAN Not Available [facility] ([facility]) [address] [facility], [place], [address], 01/02/2025 09:08:04 01/02/20 25 01/02/2025 CBC WITH DIFFE RENTI AL/PL ATELE T hematology comments: GRAIN ELEVATOR MAN Not Available [facility] ([facility]) [address] [facility], [place], [address], 01/02/2025 09:08:04 01/02/20 25 01/02/2025 COMP. METAB OLIC PANEL (14) glucose 135 mg/dL 70-99 above high normal Not Available [facility] ([facility]) [address] [facility], [place], [address], 01/02/2025 09:08:05 01/02/20 25 01/02/2025 COMP. METAB OLIC PANEL (14) BUN 23 mg/dL 8-27 normal Not Available [facility] ([facility]) [address] [facility], [place], [address], 01/02/2025 09:08:05 01/02/20 25 01/02/2025 COMP. METAB OLIC PANEL (14) creatinine 1.06 mg/dL 0.57-1 .00 above high normal Not Available [facility] ([facility]) [address] [place], [address], 01/02/2025 09:08:05 01/02/20 25 01/02/2025 COMP. METAB OLIC PANEL (14) eGFR 58 mL/mi n/1.7 3 >59 below low normal Not Available [facility] ([facility]) [address] [facility], [place], [address], 01/02/2025 09:08:05 01/02/20 25 01/02/2025 COMP. METAB OLIC PANEL (14) BUN/creatini ne ratio 22 12-28 normal Not Available [facility] ([facility]) [address] [place], [address], 01/02/2025 09:08:05 01/02/20 25 01/02/2025 COMP. METAB OLIC PANEL (14) sodium 141 mmol/ L 134-14 4 normal Not Available [facility] ([facility]) [address] [facility] [place], [address], 01/02/2025 09:08:05 01/02/20 25 01/02/2025 COMP. METAB OLIC PANEL (14) potassium 4.3 mmol/ L 3.5-5. 2 normal Not Available [facility] ([facility]) [address] [facility] [place], [address], 01/02/2025 09:08:05 01/02/20 25 01/02/2025 COMP. METAB OLIC PANEL (14) chloride 98 mmol/ L 96-106 normal Not Available [facility] ([facility]) [address] [facility] [place], [address], 01/02/2025 09:08:05 01/02/20 25 01/02/2025 COMP. METAB OLIC PANEL (14) carbon dioxide, total 29 mmol/ L 20-29 normal Not Available [facility] ([facility]) [address] [facility] [place], [address], 01/02/2025 09:08:05 01/02/20 25 01/02/2025 COMP. METAB OLIC PANEL (14) calcium 9.0 mg/dL 8.7-10 .3 normal Not Available [facility] ([facility]) [address] [facility] [place], [address], 01/02/2025 09:08:05 01/02/20 25 01/02/2025 COMP. METAB OLIC PANEL (14) protein, total 6.8 g/dL 6.0-8. 5 normal Not Available [facility] ([facility]) [address] [place], [address], 01/02/2025 09:08:05 01/02/20 25 01/02/2025 COMP. METAB OLIC PANEL (14) albumin 3.8 g/dL 3.9-4. 9 below low normal Not Available [facility] ([facility]) [address] [place], [address], 01/02/2025 09:08:05 01/02/20 25 01/02/2025 COMP. METAB OLIC PANEL (14) globulin, total 3.0 g/dL 1.5-4. 5 Not Available [facility] ([facility]) [address] [place], [address], 01/02/2025 09:08:05 01/02/20 25 01/02/2025 COMP. METAB OLIC PANEL (14) bilirubin, total 0.6 mg/dL 0.0-1. 2 normal Not Available [facility] ([facility]) [address] [place], [address], 01/02/2025 09:08:05 01/02/20 25 01/02/2025 COMP. METAB OLIC PANEL (14) alkaline phosphatase 104 IU/L 44-121 normal Not Available [facility] ([facility]) [address] [place], [address], 01/02/2025 09:08:05 01/02/20 25 01/02/2025 COMP. METAB OLIC PANEL (14) AST (SGOT) 11 IU/L 0-40 normal Not Available [facility] ([facility]) [address] [place], [address], 01/02/2025 09:08:05 01/02/20 25 01/02/2025 COMP. METAB OLIC PANEL (14) ALT (SGPT) 7 IU/L 0-32 normal Not Available [facility] ([facility]) [address] [place], [address], 01/02/2025 09:08:05 01/02/20 25 01/02/2025 LIPID PANEL cholesterol, total 141 mg/dL 100-19 9 normal Not Available [facility] ([facility]) [address] [facility] [place], [address], 01/02/2025 09:08:05 01/02/20 25 01/02/2025 LIPID PANEL triglyceride s 136 mg/dL 0-149 normal Not Available [facility] ([facility]) [address] [place], [address], 01/02/2025 09:08:05 01/02/20 25 01/02/2025 LIPID PANEL HDL cholesterol 46 mg/dL >39 normal Not Available [facility] ([facility]) [address] [place], [address], 01/02/2025 09:08:05 01/02/20 25 01/02/2025 LIPID PANEL VLDL cholesterol gabriela 24 mg/dL 5-40 Not Available [facility] ([facility]) [address] [place], [address], 01/02/2025 09:08:05 01/02/20 25 01/02/2025 LIPID PANEL LDL chol calc ([facility]) 71 mg/dL 0-99 Not Available [facility] ([facility]) [address] [place], [address], 01/02/2025 09:08:05 01/02/20 25 01/02/2025 LIPID PANEL 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 6 above high normal Predi abete s: 5.7 - 6.4 Diabe deniz: >6.4 Glyce halley contr ol for adult s with diabe deniz: <7.0 Not Available [facility] ([facility]) [address] [place], [address], 01/02/2025 09:08:06 01/08/20 25 01/07/2025 drug scree n, urine AMP negati ve Not Available [address], [address], 12/18/2024 15:58:52 01/08/20 25 01/07/2025 drug scree n, urine BAR negati ve Not Available [address], [address], 12/18/2024 15:58:52 01/08/20 25 01/07/2025 drug scree n, urine BUP negati ve Not Available [address], [address], 12/18/2024 15:58:52 01/08/20 25 01/07/2025 drug scree n, urine BZO negati ve Not Available [address], [address], 12/18/2024 15:58:52 01/08/20 25 01/07/2025 drug scree n, urine TEVIN negati ve Not Available [address], [address], 12/18/2024 15:58:52 01/08/20 25 01/07/2025 drug scree n, urine FTY negati ve Not Available [address], [address], 12/18/2024 15:58:52 01/08/20 25 01/07/2025 drug scree n, urine MDMA negati ve Not Available [address], [address], 12/18/2024 15:58:52 01/08/20 25 01/07/2025 drug scree n, urine MET negati ve Not Available [address], [address], 12/18/2024 15:58:52 01/08/20 25 01/07/2025 drug scree n, urine MOP negati ve Not Available [address], [address], 12/18/2024 15:58:52 01/08/20 25 01/07/2025 drug scree n, urine MTD negati ve Not Available [address], [address], 12/18/2024 15:58:52 01/08/20 25 01/07/2025 drug scree n, urine OXY negati ve Not Available [address], [address], 12/18/2024 15:58:52 01/08/20 25 01/07/2025 drug scree n, urine PCP negati ve Not Available [address], [address], 12/18/2024 15:58:52 01/08/20 25 01/07/2025 drug scree n, urine TCA negati ve Not Available [address], [address], 12/18/2024 15:58:52 01/08/20 25 01/07/2025 drug scree n, urine THC negati ve Not Available [address], [address], 12/18/2024 15:58:52 Result Notes None recorded. Problems Name Problem SNOMED Code Status Onset Date Resolution Date Notes Provider Name and Address Organization Details Recorded Time Diabetes mellitus 49434164 Active BEVERLY Kinney - [facility] 4 10:51:56 Neuropathy 115216511 Active Mesha la, EBVERLY - [facility] 4 10:52:11 Cerebrovas cular accident 996923523 Active has had mulitple strokes and has a shunt in brain Mesha la, BEVERLY - [facility] 4 10:58:06 Peripheral vascular disease 974109318 Active Mesha la, BEVERLY - [facility] 4 10:54:17 Charcot's joint of foot 954657127 Active Mesha Marrero null, [place] - [facility] 4 10:55:44 Malignant neoplasm of uterus 557723755 Active Mesha Marrero null, [place]EVER[place] - [facility] 4 10:57:08 Problem Notes None recorded. Procedures Surgical History Date Name Laterality Status Provider Name and Address Organization Details Recorded Time 04/28/20 24 Advance Care Planning completed Neda Jamess [place] - [facility] 04/28/2024 10:11:16 04/28/20 24 Functional Status Assessed completed Neda Stears [place] - [facility] 024 10:11:16 07/19/19 15 Cancer Surgery completed Neda Stears [place] - [facility] 1 06/28/2023 10:13:42 06/18/18 85 Dilation and Curettage, sharp completed Neda Stears [place] - [facility] 2023 10:13:42 06/18/18 83 IUD Insertion completed Neda Jamess [place] - [facility] 10:13:42 procedure on wrist completed Mesha Marrero [place] - [facility] 03/07/2024 10:56:08 procedure on foot completed Mesha Marrero [place] - [facility] 03/07/2024 10:56:25 hysterectomy completed Mesha PAUL - [facility] 03/07/2024 10:57:27 procedure on brain ventricular shunt completed Mesha PAUL - [facility] 03/07/2024 10:58:36 Imaging Results None recorded. Procedure Notes None recorded. Medical Equipment None Reported. Allergies Allergen ID Allergen Name Allergen Category Reaction Reaction Severity Criticality Documentation Date Start Date Code Code System Note Provider Name and Address Organization Details Recorded Time 646290 Glucophag e medicatio n Not available Not available high 03/07/2024 60544 7 RxNorm facia l droop ing Mesha Marrero null, [place] - [facility] 4 10:42:20 485803 Micronase medicatio n rash Not available high 03/07/2024 56062 9 RxNorm Mesha Marrero [place], [place] - [facility] 4 10:42:36 044831 Cipro medicatio n Not available Not available high 03/07/2024 78377 3 RxNorm depre ssion Mesha Marrero [place], [place] - [facility] 4 10:43:12 306552 Bactrim medicatio n Not available Not available high 03/07/2024 29398 9 RxNorm Mesha Marrero [place] - [facility] 4 10:43:26 966831 amoxicill in medicatio n Not available Not available high 03/07/2024 723 RxNorm Mesha Marrero [place] - [facility] 4 10:43:40 153957 ciproflox acin medicatio n Not available Not available Not available 05/20/20252015 2551 RxNorm Not Available mario - [facility] [employer] - prod 5 11:59:12 111739 glyburide medicatio n Not available Not available Not available 05/20/20252015 4815 RxNorm Not Available mario - External Data [employer] - prod 5 11:59:12 889735 tirzepati de medicatio n other Not available Not available 05/20/20252023 62784 23 RxNorm Visio n probl ems with nause a. Not Available mario - External Data [employer] - prod 5 11:59:12 807524 sulfameth oxazole / trimethop rim medicatio n Not available Not available Not available 05/20/20252015 12066 RxNorm Not Available mario - External Data Service - prod 5 11:59:12 682441 clindamyc in Not available Not available Not available Not available 05/20/20252021 2582 RxNorm Not Available mario - External Data [employer] - prod 12:00:36 563729 metformin hydrochlo ride medicatio n Not available Not available Not available 05/20/20252015 19910 3 RxNorm Not Available mario - [facility] [employer] - prod 12:00:36 Medications Name Sig Start Date Stop Date Status Note LastModified by Organization Details LastModified Time Prescriptio n - Prior Authorizati on Request active Not Available Not Available N ot Available furosemide 40 mg tablet Take 1 tablet every day by oral route. 2024 active Not Available Not Available Not Avai lable fluconazole 100 mg tablet TAKE ONE (1) TABLET EVERY DAY BY ORAL ROUTE. 04/11 completed Not Available Not Available Not Available citalopram 40 mg tablet Take 1 tablet every day by oral route. 2024 active Not Available Not Available Not Avai lable Novolin N NPH U-100 Insulin isophane 100 unit/mL subcutaneou s susp active Not Available Not Available Not Available omeprazole 40 mg capsule,del ayed release TAKE 1 CAPSULE EVERY DAY 2024 active Not Available Not Available Not Avai lable Novolin R Regular U-100 Insulin 100 unit/mL injection solution active Not Available Not Available Not Available cephalexin 500 mg capsule TAKE ONE (1) CAPSULE TWICE A DAY BY ORAL ROUTE FOR 7 DAYS. 03/18 completed Not Available Not Available Not Available losartan 25 mg tablet Take 1 tablet every day by oral route. 2024 active Not Available Not Available Not Avai lable gabapentin 300 mg capsule Take 1 capsule twice a day by oral route for 30 days. 2024 active Not Available Not Available Not Avai lable Tylenol 325 mg tablet Take 2 tablet(s) every 6 hours by oral route as needed. active Not Available Not Available No t Available mupirocin 2 % topical ointment APPLY A SMALL AMOUNT TO THE AFFECTED AREA BY TOPICAL ROUTE THREE (3) TIMES PER DAY 12/18 completed Not Available Not Available Not Available ergocalcife rol (vitamin D2) 1,250 mcg (50,000 unit) capsule TAKE ONE (1) CAPSULE BY MOUTH EVERY WEEK active Not Available Not Available No t Available levothyroxi ne 112 mcg tablet TAKE ONE (1) TABLET EVERY DAY BY ORAL ROUTE. active Not Available Not Available No t Available Novolog Mix 70-30 FlexPen U-100 Insulin 100 unit/mL subcutaneou s pen INJECT 50 UNITS UNDER THE SKIN TWO TIMES DAILY FOR TYPE 2 DIABETES MELLITUS 2024 active Not Available Not Available Not Avai lable rosuvastati n 20 mg tablet TAKE 1 TABLET EVERY DAY 2024 active Not Available Not Available Not Avai lable aspirin 81 mg daily active Not Available Not Available No t Available levothyroxi ne 07/15 completed Not Available Not Available Not Available ferrous sulfate 07/15 completed Not Available Not Available Not Available rosuvastati n 1 tablet every day at night 07/29 completed Not Available Not Available Not Available BD Ultra-Fine Short Pen Needle 31 gauge x 5/16 Take 1 needle(s) twice a day by miscell. route. active Not Available Not Available No t Available FeroSul 325 mg (65 mg iron) tablet TAKE 1 TABLET EVERY DAY 2024 active Not Available Not Available Not Avai lable TRUEplus Lancets 33 gauge USE DIRECTED 2024 active Not Available Not Available Not Avai lable True Metrix Glucose Test Strip TEST BLOOD SUGAR THREE TIMES DAILY active Not Available Not Available No t Available Brilinta 60 mg tablet TAKE ONE (1) TABLET BY MOUTH TWICE DAILY 2024 active Not Available Not Available Not Avai lable Accu-Chek Guide Glucose Meter Take 1 each by miscell. route. active Not Available Not Available No t Available Fiasp FlexTouch U-100 Insulin 100 unit/mL (3 mL) subcutaneou s pen active Not Available Not Available Not Available citalopram 30 mg capsule Take 1 capsule(s ) every day by oral route. 07/15 completed Not Available Not Available Not Available DropSafe Alcohol Prep Pads USE TOPICALLY THREE TIMES DAILY active Not Available Not Available No t Available FreeStyle Kolton 3 Sensor device USE DIRECTED CHANGE SENSOR EVERY 14 DAYS 2024 active Not Available Not Available Not Avai lable FreeStyle Kolton 3 [place] USE DIRECTED active Not Available Not Available No t Available Vitals Date Recorded Body height Heart rate Oxygen saturation Respiratory rate Pain severity - 0-10 verbal numeric rating [Score] - Reported Systolic And Diastolic Provider Name and Address Organization Details Last Updated DateTime 5 160.02 cm 87 /min 96 % 18 /min 0 112/68 mm[Hg] Mesha Marrero [facility] 5 13:31:08 Date Recorded Body height Provider Name an d Address Organization Details Last Updated DateTime 07/25/2024 160.02 cm Mesha Marrero [facility] 0 07/25/2024 09:27:40 Date Recorded Body height Body mass index (BMI) Body weight Heart rate Oxygen saturation Respiratory rate Pain severity - 0-10 verbal numeric rating [Score] - Reported Systolic And Diastolic Provider Name and Address Organization Details Last Updated DateTime 5 160.02 cm 55.1 kg/m2 370587. 23 g 87 /min 95 % 18 /min 0 114/64 mm[Hg] Mesha Marrero [facility] 5 14:22:25 Date Recorded Body height Provider Name an d Address Organization Details Last Updated DateTime 01/01/2025 160.02 cm Mesha Marrero [facility] 0 01/01/2025 09:24:35 Date Recorded Body height Respiratory rate Heart rate Oxygen saturation Body temperature Systolic And Diastolic Provider Name and Address Organization Details Last Updated DateTime 4 160.02 cm 18 /min 78 /min 97 % 97.9 [degF] 132/78 mm[Hg] Neda Donna [place] - [facility] 4 10:34:38 Social History Question Answer Notes LastModified by Organizat ion Details LastModified Time Tobacco Smoking Status Never Smoker Neda Thompson [place], [place] - [facility] 03/18/2024 11:13:18 Do You Have An Advance Directive? No Information not available 03/18/2024 Are You Blind Or Do You Have Difficulty Seeing? No Information not available 03/18/2024 Is Blood Transfusion Acceptable In An Emergency? No Information not available 04/28/2024 What Is Your Level Of Caffeine Consumption? Moderate Information not available 03/18/2024 How Much Tobacco Do You Chew? None Information not available 04/28/2024 Are You Deaf Or Do You Have Serious Difficulty Hearing? No Information not available 03/18/2024 What Type Of Diet Are You Following? REGULAR Information not available 03/18/2024 Which Illicit Or Recreational Drugs Have You Used? None Information not available 04/28/2024 What Is The Highest Grade Or Level Of School You Have Completed Or The Highest Degree You Have Received? [id number] Information not available 04/28/2024 Have There Been Any Changes To Your Family Or Social Situation? No Information no t available 03/18/2024 What Is The Fluoride Status Of Your Home? Unknown Information not available 03/18/2024 How Many Years Have You Used Illicit Or Recreational Drugs? 0 Information not available 04/28/2024 Do You Have A Medical Power Of Risk Assessment Analyst? No Information not available 03/18/2024 What Was The Date Of Your Most Recent Tobacco Screening? 07/15/2024 [email or web address] Information not available 07/15/2024 How Many Children Do You Have? 3 Information not available 03/18/2024 Do You Use Protection Against STDs? No Information not available 04/28/2024 What Is Your Relationship Status? Information not available 04/28/2024 Do You Use Your Seat Belt Or Car Seat Routinely? Yes Information not available 04/28/2024 Are You Sexually Active? No Information not available 04/28/2024 Do You Have Smoke And Carbon Monoxide Detectors In Your Home? Yes Information not available 03/18/2024 Are You Passively Exposed To Smoke? Yes Information no t available 04/28/2024 Do You Use Sunscreen Routinely? No Information not available 04/28/2024 Has Tobacco Cessation Counseling Been Provided? No Information not available 03/18/2024 Do You Have Difficulty Walking Or Climbing Stairs? Yes Information not available 03/18/2024 Sex: Female Functional Status Question Answer Note LastModified by Organizat ion Details LastModified Time Do you or have you ever used smokeless tobacco? Never used smokeless tobacco Information not available 04/28/2024 Are you currently employed? Yes Information not available 04/28/2024 Do you have transportation difficulties? Yes Information not available 03/18/2024 Are you able to care for yourself independently? No Information not available 04/28/2024 Do you have difficulty dressing, bathing, grooming, or toileting? Yes Information not available 03/18/2024 Do you or have you ever used e-cigarettes or vape? Never used electronic cigarettes Information not available 04/28/2024 What is your exercise level? None Information not available 03/18/2024 Do you use any illicit or recreational drugs? No Information not available 03/18/2024 Do you or have you ever used any other forms of tobacco or nicotine? No Information not available 03/18/2024 What is your level of alcohol consumption? None Information not available 03/18/2024 Are you able to walk independently without assistance or assistive devices? YESWOREST wheel chair, but can stand up and walk a little Information not available 03/18/2024 Do you have difficulty doing errands alone? 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 [id number] Information not available 04/28/2024 Do you have difficulty concentrating, remembering or making decisions? Yes Information no t available 03/18/2024 Family History Relationship Description Onset Age of this Age Resolved Age Notes LastModified by Organization Details LastModified Time Mother Chronic obstructive pulmonary disease bstears Not available 2023 10:13:41 Mother Depressive disorder bstears Not available 2023 10:13:41 Mother Malignant neoplasm of cervix uteri bstears Not available 04/2024 10:13:41 Mother Obesity bstears Not available 1 06/28/2023 10:13:41 Mother Diabetes mellitus bstears Not available 2023 10:13:41 Brother Harmful pattern of use of alcohol bstears Not available 2023 10:13:41 Brother Asthma bstears Not available 1 06/28/2023 10:13:41 Brother Obesity bstears Not available 04/28/2024 10:13:41 Brother Substance abuse bstears Not available 2023 10:13:41 Sister Hypercholest erolemia bstears Not available 2023 10:13:41 Sister Disorder of thyroid gland bstears Not available 2023 10:13:41 Sister Anxiety disorder bstears Not available 2023 10:13:41 Sister Cerebrovascu lar accident bstears Not available 04/2024 10:13:41 Sister Malignant neoplasm of breast bstears Not available 2023 10:13:41 Sister Arthritis bstears Not available 04/28/2024 10:13:41 Sister Hypertensive disorder bstears Not available 2023 10:13:41 Sister Obesity bstears Not available 1 06/28/2023 10:13:41 Paternal Grandfather Malignant neoplastic disease bstears Not available 2023 10:13:41 Father Osteoporosis bstears Not availa ble 04/28/2024 10:13:41 Medical History Condition Response Depression Y Murmur Y Muscle, Joint, or Bone Problems Y Obesity Y Arthritis Y Acid Reflux (GERD) Y Cancer Y Stroke Y Hypercholesterolemia Y Thyroid Problems Y Anemia Y Constipation Y Diabetes Y Neuropathy Y Osteoporosis Y Gynecological History Statement/Question Response Menses Monthly N Date of Last Colonoscopy Date of Last Mammogram LMP Unknown Most Recent Bone Density Obstetrics History GPAL:G 0 P 0 0 0 0 Immunizations Vaccine Type Date Status Note Provider Nam e and Address Organization Details Recorded Time Influenza, split virus, trivalent, preservative 9 completed Mesha Marre[place] - [facility] 07/15/2024 13:09:13 Influenza, split virus, trivalent, preservative 0 mackenzie Marrero [place], [place] - [facility] 07/15/2024 13:09:13 Influenza, split virus, trivalent, preservative 7 mackenzie la, [place] - [facility] 07/15/2024 13:09:13 Influenza, split virus, trivalent, preservative 6 mackenzie Marrero null[place] - [facility] 07/15/2024 13:09:13 Hep A, ped/adol, 2 dose 9 completed Mesha la, [place] - [facility] 07/15/2024 13:09:13 Influenza, split virus, quadrivalent, PF 3 completed Mesha la, BEVERLY - [facility] 07/15/2024 13:09:13 Past Encounters Encounter ID Performer Location Encounter Start Date Encounter Closed Date Diagnosis/Indication Diagnosis SNOMED-CT Code Diagnosis ICD10 Code Diagnosis IMO Codes Diagnosis Note [id number] Michael Price APRN [address] [address] 03/07/2024 09:43:30 03/07/2024 11:26:35 Body mass index 40+ - severely obese 185146183 Z68.43 Morbid obesity 635775421 E66.01 return once better for labs Acute urin cecily tract infection 205788644 N39.0 increase fluidscran dumont juicewipe front to backvoid after intercours sruthi not hold urineantib iotics as orderedcot ton underwearr eturn if symptoms worsen or do not improve Long-term current use of drug therapy 929210898 Z79.311 [id number] Michael Price APRN [address] [address] 03/18/2024 10:48:05 03/18/2024 12:02:40 Neuropathy 397253653 G62.9 Pt compliant with plan of careMario reviewedme dication compliance discussedL ast uds:ontro l substance agreement on file Peripheral vascular disease 325040442 I73.9 Contusion of right hand 7505408279 8163095 S60.221A pt refuses xrays Abrasion o f skin of lower leg 577994653 S80.811A Candidiasis of vagina 72 473608 B37.31 Diabetes mellitus 829252 09 E13.42 Abnormal g ait due to muscle weakness 555579243 M62.81 Dependence on wheel chair 274998191 Z99.3 [id number] Michael Price APRN [address] [address] 03/21/2024 09:22:18 03/21/2024 10:30:33 Abnormal gait due to muscle weakness 919576944 M62.81 Pt can't uses walker due to unsteady/w eakness, needs wheelchair inside home to complete daily duties Diabetes mellitus 467315 09 E13.42 Neuropathy 972647737 G62 .9 Pt compliant with plan of careKasper reviewedme dication compliance discussedL ast uds:4Contro l substance agreement on file Peripheral vascular disease 886347498 I73.9 [id number] Michael Price [employer]PORATE SAFETY MANAGER [address] [address] 04/11/2024 09:09:12 04/11/2024 10:36:10 Diabetes mellitus 80145897 E13.42 Teaching and insertion of Freestyle kolton done with patient. Verbalized understand ing. Edema of l ower extremity 156146794 R60.0 Vitamin D deficiency 347 46302 E55.9 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 2 diabetes mellitus 0562985296 107 E11.42 [id number] Michael Price CORPORATE SAFETY MANAGER [address] [address] 04/28/2024 10:07:23 04/28/2024 11:45:03 Adult health examination 594843756 Z00.00 Depression screening 171 683470 Z13.31 A depression screening was completed via a standardiz ed screening tool. 5 minutes were spent discussing depression screening results and risk factors. Examinatio n of blood pressure 320563536 Z01.30 Diet education 04166336 Z71.3 Counseling 672050324 Z71 .82 Exercise counseling . Patient encouraged to exercise 30 minutes 5 days a week. At [facility] ed risk for falls 481431559 Z91.81 STEADI FAST screening score of _12____. Advance care planning 71 5805632 Z71.89 Screening mammography 24 520783 Z12.31 Screening for malignant neoplasm of colon 859845484 Z12.11 Postmenopausal state 764 71779 Z78.0 Z13.820 Z01.419 Hepatitis C screening declined 5915053885 5105 Z53.20 Diabetes mellitus 768426 09 E13.42 Teaching and insertion of Freestyle kolton done with patient. Verbalized understand ing. [id number] Michael Price [address] [address] 07/15/2024 13:01:22 07/15/2024 14:16:37 Type 2 diabetes mellitus 13672055 E11.29 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 2 diabetes mellitus 8785581805 107 E11.42 Pt compliant with plan of careKasper reviewedme dication compliance discussedL ast uds: 4Control substance agreement on file Vitamin D deficiency 347 11565 E55.9 Depressive disorder 3548 9007 F32.A [id number] Michael Price [address] [address] 07/25/2024 09:22:14 07/25/2024 10:58:50 Type 2 diabetes mellitus 71442153 E11.29 [id number] Michael Price [address] [address] 12/18/2024 13:43:25 12/18/2024 15:58:31 Diabetes mellitus 93761403 E13.42 *Diabetic Measures:M etformin:n oACE/ARB:y esASA:no brilintaSt atin:yesGL P:no Peripheral vascular disease 884414332 I73.9 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 2 diabetes mellitus 2224066592 107 E11.42 Pt compliant with plan of careKasper reviewedme dication compliance discussedL ast uds: 4Control substance agreement on file Long-term current use of drug therapy 337547116 Z79.899 01109126 [id number] Janalorena Price [address] [address] 01/01/2025 09:11:40 01/01/2025 09:55:53 Polyneuropathy due to diabetes mellitus 58872356 E13.42 Z79.4 92051375 Health Concerns Section Related Observation LastModified by Organization Detai ls LastModified Time None Recorded Concern Status LastModified by Organization Details LastModified Time None Recorded Advance Directives Directive N: Payers Insurance Date Sequence Insurance Name Policy Number Policy Prasad Covered Member ID Prasad Member ID Guarantor Name 12/29/2024 [place] Albino Jaeger [id number] Albino Jaeger 01/19/2025 1 [employer] (MEDICARE REPLACEMENT/ ADVANTAGE - PPO) Albino Jaeger [id number] Albino Jaeger Notes Date Note Type Note Provider Name and Address Organization Details Recorded Time 4 text/html Medicare Annual Wellness VisitReported by PatientSocial/Behavioral HistoryFor diet and nutrition, patient reportshigh caloric intakeandhigh carbohydrate meals. For fracture risk, patient reportshistory of fracturesandprevious musculoskeletal injuriesbut reportsno recent explained fractureandno sudden unexplained fractures. For physical activity, patient reportsdoes not exercise on a regular basis,decreased physical activity, andpoor physical condition.Mental Status:For depression risk, patient reportsfeels sad, empty, or tearful,sleep disturbances or insomnia,loss of energy,history of mood disorders, andhistory of depressionbut reportsno loss of interest in activities,no significant changes in weight,no agitation, andno thoughts of suicide. For concentration and memory, patient reportsforgetting wordsbut reportsno decreased concentrating abilityandno memory lapses or loss. For speech/motor difficulties, patient reportsslowed reaction timeandknocking things over when trying to pick them upbut reportsno speech difficulties,no difficulty expressing formulated concepts, andno difficulty writing/copying. For orientation, patient reportsno disorientation to time (around 10:30),no disorientation to date (04-28-24), andno disorientation to place (dr. lancaster).Functional AbilityFor vision, patient reportsworse near (wears reading glasses). For falls risk assessment, patient reportsdizziness/vertigoa ndfear of fallingbut reportsno frequent falls while walking,fall(s) in the past year 2, andfall(s) since last visit0. For home safety, patient reportsunsafe gas appliancesanddoes not have hand bars in the bathroom/showerbut reportsno unsafe lupe hazzards,no unsafe stairs,working smoke/co detectors,use of seatbelts, andgood lighting in the home. For hearing, patient reportsno loss of hearing. For activities of daily living, patient reportsable to bathe with limited or no assistance,able to contol urination and bowels,able to dress with limited or no assistance (has a device to help with putting socks on),able to feed self with limited or no assistance,able to get out of chair or bed with limited or no assistance,able to groom with limited or no assistance, andable to toilet with limited or no assistance(would like some type of help with bathroom and toilet). For instrumental activities of daily living, patient reportsable to do house work with limited or no assistance (performs some housework),able to grocery shop with limited or no assistance (has someone to drive her to grocery and bring in groceries to house),able to manage medications with limited or no assistance,able to manage money with limited or no assistance,able to prepare meals with limited or no assistance (performs very carefully, needs help when baking), andable to use the phone with limited or no assistance. For current level of pain, patient reportsno pain: 0/10. 64 year old female who presents to the office today for a medicare annual wellnessneeds kolton sensors ordered Michael Price APRN [address], [place], [address], [email or web address] - [facility] 04/28/2024 13:55:07 5 text/html Diabetes F/UReported by PatientHPIFor context, patient reportsnormal range of home blood sugars (in the low 100s),seeing eye doctor regularly, andchecking feet regularly. For associated symptoms, patient reportsno weight gain,no weight loss,no dizziness,no sweats,no headaches,no confusion,no increased thirst,no increased appetite,no increased urination,no blurred vision,no numbness of feet, andno calluses on feet. 64 yr old female presents for a diabetes follow up. She is requesting some refills and would like to have a few refills on her gabapentin. pt states she is doing well on gabapentin. Michael Price APRN [address], [place], [address], [email or web address] - [facility] 07/15/2024 14:18:56 02/07/202 5 text/html 64 yr old female presents for labs. BEVERLY Kinney - [facility] 07/25/2024 11:22:01 5 text/html Diabetes F/UReported by PatientHPIFor context, patient reportshome blood sugar range highbut reportsseeing eye doctor regularlyandchecking feet regularly. For labs, patient reportslast a1c result: 9.5. For associated symptoms, patient reportsno weight gain,no weight loss,no dizziness,no sweats,no headaches,no confusion,no increased thirst,no increased appetite,no increased urination,no blurred vision,no numbness of feet, andno calluses on feet. 64 yr old female presents for a diabetic follow up. States she is unable to use kolton because they will not stay on. decreased insulin to 45 units. pt wants to try to meal prep to help lose weight Michael Price, [employer]PORATE [employer] MANAGER [address], [place], [address], [place] - [facility] 12/18/2024 16:01:05 5 text/html 64 yr old female presents for labs. BEVERLY Kinney - [facility] 01/01/2025 13:37:41 OBGyn Episode No OBEpisode recorded.
--- OUTSIDE RECORDS SUMMARY | 2025-05-24 17:05 | XMS_ITS | Patient Health Record ---
Author Organization [facility] Address [address] [id number] Care Team Providers Care Trade Clerk Name Role Phone MITESH HILL Primary Care Provider Unavailabl e Allergies Allergen (clinical drug ingredient) Drug/Non Drug Allergy documented on EMR Reaction Allergy Type Onset Date Status amoxicillin Amoxicillin Unknown Drug Allergy Act donato sulfamethoxazole / trimethoprim Bactrim Unknown Drug Allergy Active ciprofloxacin Cipro Unknown Drug Allergy Act donato Glucophage Unknown Drug Allergy Active Micronase Unknown Drug Allergy Active Reason For Referral No Information Medications Medication SIG (Take, Route, Frequency, Duration) Notes Start Date End Date Status NovoLOG FlexPen 100 UNIT/ML as directed Subcutaneous Active Gabapentin 300 MG 1 capsule Orally TWI CE A DAY Active Ferrex 150 150 MG 1 capsule Orally Onc e a day; Duration: 90 days Active Cholecalciferol 50 MCG (1999 UT) 1 capsule Orally 6 TIMES A WEEK Active Ergocalciferol 1.25 MG (27964 UT) 1 capsule Orally WEEKLY Acti ve Aspirin 81 MG 1 tablet Orally Once a day Active CeleXA 20 MG 1 1/2 TABLET Orally Once a day Active Brilinta 60 MG 1 tablet Orally Twic e a day Active Omeprazole 40 MG 1 capsule 30 minutes before morning meal Orally Once a day Active Tylenol 325 MG 1 tablet as needed Orally every 4 hrs Active Losartan Potassium 25 MG 1 tablet Orally Once a day Active Claritin 10 MG 1 tablet Orally Once a day Active Levothyroxine Sodium 112 MCG 1 tablet in the morning on an empty stomach Orally Once a day Active Crestor 40 MG 1 tablet Orally Once a day Active Social History Tobacco Use: Social History Observation Description Date Details (start date - stop date) Never Smoker NA - NA Tobacco Use/Smoking Question Answer Notes Are you a nonsmoker Alcohol Screen (Audit-C) Question Answer Notes Did you have a drink containing alcohol in the p ast year? No Points 0 Interpretation Negative Problems Problem Type SNOMED Code ICD Code Onset Dates Problem Status W/U Status Risk Notes Problem Essential hypertension (23847661) Essential (primary) hypertension (I10) Active confirmed Problem Hypothyroidism (53412031) Hypothyroidism, unspecified (E03.9) Active confirmed Problem Diabetic renal disease (372175227) Type 2 diabetes mellitus with diabetic chronic kidney disease (E11.22) Active confirmed Problem Hyperlipidemia (22561425) Hyperlipidemia, unspecified (E78.5) Active confirmed Problem Chronic kidney disease stage 3B (disorder) (626597954) Chronic kidney disease, stage 3b (N18.32) Active confirmed Plan Of Treatment No Information Insurance Providers Payer Name Payer Address Payer Phone Subscriber Number Group Number Insured Name Patient Relationship to Insured Coverage Start Date Coverage End Date Nneka Morales [facility] [address] [address] [place] [address] [id number] MARIAELENA CARTAGENA Self - patient is the insured Medicare [address] [address] [place] [address] [id number] MARIAELENA CARTAGENA Self - patient is the insured Medical (General) History Medical History History ICD Code Chronic kidney disease, stage 3b N18.32 Essential (primary) hypertension I10 Type 2 diabetes mellitus with diabetic c hronic kidney disease E11.22 Hypothyroidism, unspecified E03.9 Hyperlipidemia, unspecified E78.5 UTERINE CANCER, CVA X2 Surgical History Surgery Date(Month/Year) EYE SURGERIES, SCREW OUT OF FOOT Hospitalization History Reason Date(Month/Year) COVID 2020
[2025-05-24 17:27] LABS: NT Pro Brain Natriuretic Pep. 1660 pg/mL (0-125)
[2025-05-24] MEDS: 0.9 % SODIUM CHLORIDE 50 ML VIAL IV (17:32)
[2025-05-24] MEDS: IOPAMIDOL-370 (76%);100ML BOTTLE 90 ML IV (17:32)
[2025-05-24] MEDS: SODIUM CHLORIDE 0.9% 10ML SYR (RAD ONLY) 10 ML IV (17:32)
[2025-05-24 17:44] LABS: Microscopic, Urine URINE MICROSCOPIC (MICROSCOPIC)
[2025-05-24 17:45] LABS: Bilirubin,Urine Negative (Negative); Color,Urine YELLOW (Yellow); Glucose,Urine (UA) Negative (Negative); Ketones,Urine Negative (Negative); Leukocyte Esterase,Urine Negative (Negative); PH,Urine 6.5 (5.0-8.5); Protein,Urine Negative (Negative); Specific Gravity, Urine 1.010 (1.005-1.030); Urobilinogen,Urine 1.0 EU/dl (0.2)
[2025-05-24 18:11] LABS: Amphetamine/Metha Screen,Urine Negative ng/ml (<1000); Barbiturates Screen,Urine Negative ng/ml (<200); Benzodiazepines Screen,Urine Negative ng/ml (<200); Methadone Screen,Urine Negative ng/ml (<300); Opiate Screen,Urine Negative ng/ml (<300); Phencyclidine Screen,Urine Negative ng/ml (<25)
[2025-05-24] MEDS: FUROSEMIDE 40MG/4ML VIAL 40 MG IV (19:34)
--- NOTE | 2025-05-24 20:36 | PC.WOUNDNOTE ---
report called to vale BENNETT
[2025-05-24] MEDS: guaiFENesin 600 MG TAB.ER.12H PO (21:14)
[2025-05-24 21:20] LABS: Adenovirus,PCR Not Detected (NotDetected); Chlamydophila Pneumoniae, PCR Not Detected (NotDetected); Coronavirus 19, PCR Not Detected (NotDetected); Coronovirus HKU1,PCR Not Detected (NotDetected); Influenza A, PCR Not Detected (NotDetected); Influenza AH1, 2009 Not Detected (NotDetected); Influenza AH1, PCR Not Detected (NotDetected); Influenza AH3,PCR Not Detected (NotDetected); Influenza B, PCR Not Detected (NotDetected); Mycoplasma Pneumoniae, PCR Not Detected (NotDetected); Parainfluenza 1, PCR Not Detected (NotDetected); Parainfluenza 2, PCR Not Detected (NotDetected); Parainfluenza 3, PCR Not Detected (NotDetected); Parainfluenza 4, PCR Not Detected (NotDetected)
[2025-05-24 21:55] LABS: Chloride 99 mmol/L (98-107); Sodium 136 mmol/L (136-145)
[2025-05-24 21:56] LABS: Potassium 4.4 mmoL/L (3.5-5.1)
[2025-05-24 21:59] LABS: Anion Gap 13.4 mEq/L (5-15); Blood Urea Nitrogen 17 mg/dl (7-17); Calcium 7.6 mg/dl (8.4-10.2); Carbon Dioxide 28 mmol/L (22.0-30.0); Creatinine Clearance Estimated 43 mL/min (50-200); Creatinine,Serum 1.00 mg/dl (0.52-1.04); Estimated Glomerular Filt Rate 55 ml/min (>60); GFR (African American) 67 ML/MIN (>60); Glucose 173 mg/dl (74-100)
--- NOTE | 2025-05-24 23:56 | P.HP_ITS ---
<Statement entered by Matthew Sun MD - 05/26/25 15:43> Agree with plan of care as outlined by the [employer]. History of Present Illness *Admission Date: 05/24/25 *Reason for visit:: Epigastric pain *History of present illness: This is a 65-year-old female with no reported history but is on medications for presumed CVA, (Brilinta and statin), heart failure (Lasix), DM 2 on insulin, iron supplementation, hypothyroidism who presents to the emergency department t oral for shortness of breath. Is unclear who called EMS since patient lives alone but it was reported that she was experiencing shortness of breath, epigastric and nausea. She send reports going to scientologist this morning and suddenly began to experience chills. Also states she did have an episode of diarrhea today. She denies shortness of breath, chest pain. Per EMS, house was well-kept and not in disarray Emergency department workup notable for hypoxia with oxygen saturation in the high 80s requiring 3 L nasal cannula, potassium of 5.7, sodium of 130, proBNP of 1660, COVID and flu negative. CTA of the chest with small left pleural effusion and mild atelectasis. CT of the abdomen notable for debris about the esophagus concerning for acid reflux, fat stranding along the diverticulum suspicious for mild uncomplicated diverticulitis. Head CT unremarkable. Given her new hypoxia concerning for volume overload as well as mild uncomplicated diverticulitis, it was felt she would benefit from hospitalization she is admitted to the hospital service at this time [facility] Disclaimer: The information contained in this section may have been updated after the patient was seen, as this information can be updated by other users. Medical History (Updated 05/25/25 @ 00:08 by ELIDIA Bobby) History of stroke Osteoarthritis History of gastroesophageal reflux (GERD) History of diverticulitis Hyperthyroidism Diabetes mellitus, type 2 Pneumonia COVID Charcot joint of left ankle Uterine cancer CVA (cerebral vascular accident) Surgical History (Updated 05/24/25 @ 21:40 by Marie Castañeda RN) History of ankle surgery H/O wrist surgery Social History (Updated 05/24/25 @ 21:41 by Marie Castañeda RN) Smoking Status: Never smoker alcohol intake: never current occupational status: disabled Travel in the last 8 weeks?: None Have you lived/traveled outside US in past 30 days?: No Contact w/someone who lives/traveled outside US past 30 days?: No Exposure to someone with infectious disease in past 14 days?: No Do you have a fever (greater than 100.4 F or 38 C)?: No Have you tested positive for COVID-19?: No Exposed to someone with COVID-19 in past 14 days?: No Do you have a sore throat?: No Do you have a cough?: No Do you have any weakness?: No Are you experiencing any nausea/vomitting?: No Do you have any diarrhea?: No Are you experiencing any unusual bleeding?: No Do you have any muscle aches/pain?: No Do you have any abdominal pain?: No Are you experiencing loss of taste or smell?: No Other Medical History Have you received the Flu Vaccine for this season: No Have you received the Pneumonia Vaccine: No Review of Systems Review of Systems Review of systems (narrative): Negative except for HPI Meds Home Medications and Allergies Home Medications ?Medication ?Instructions ?Recorded ?Confirmed ?Type citalopram 40 mg tablet 40 mg PO DAILY 05/24/2501/09 History ferrous sulfate 325 mg (65 mg 325 mg PO DAILY 05/24/25 05/24/25 History iron) tablet (FeroSul) furosemide 40 mg tablet 40 mg PO DAILY 05/24/2501/09 History gabapentin 300 mg capsule 300 mg PO TID 05/24/2505/24 History insulin aspar prot-insulin aspart 50 unit SQ BID 05/2405/24/25 History 100 unit/mL (70-30) subcutaneous pen (Novolog Mix 70-30FlexPen U-100) levothyroxine 112 mcg tablet 112 mcg PO DAILY 05/24/25 05/24/25 History losartan 25 mg tablet 25 mg PO DAILY 05/24/2501/09 History nitroglycerin 0.4 mg sublingual 0.4 mg sublingual Q5M PRN Chest 05/24/25 05/24/25 History tablet Pain omeprazole 40 mg capsule,delayed 40 mg PO DAILY 05/24/25 History release rosuvastatin 20 mg tablet 20 mg PO HS 05/24/25 5 History ticagrelor 60 mg tablet (Brilinta) 60 mg PO DAILY 01/0905/24/25 History New Prescriptions to Start Prescriptions: Allergies Allergy/AdvReac Type Severity Reaction Status Date / Time amoxicillin Allergy Hives Verified 05/24/25 21:21 ciprofloxacin Allergy Hives Verified 05/24/25 21:21 metformin Allergy Rash Verified 05/24/25 21:21 sulfamethoxazole (From Allergy Hives Verified 05/24/25 16:38 Bactrim) trimethoprim (From Bactrim) Allergy Hives Verified 05/24/25 16:38 Exam Data for Last 24 hours Vital signs and Labs for Last 24 Hours: Temp Pulse Resp BP Pulse Ox O2 Del Method O2 Flow Rate 99.2 F 95 H 16 126/53 L 99 Nasal Cannula 2 05/24/25 21:03 05/24/25 21:03 05/24/25 21:03 05/24/25 21:03 05/24/25 21:03 05/24/25 23:00 05/24/25 23:00 Laboratory Results - last 24 hr 05/24/25 16:32: WBC 9.1, RBC 4.03 L, Hgb 11.7 L, Hct 36.0 L, MCV 89.3, MCH 29.0, MCHC 32.5, RDW 13.7, Plt Count 219, MPV 10.3, Neut % (Auto) 86.3 H, Lymph % (Aut o) 8.4 L, Pender % (Auto) 4.6, Eos % (Auto) 0.3, Baso % (Auto) 0.1, Neut # (Auto) 7.8, Lymph # (Auto) 0.8, Pender # (Auto) 0.4, Eos # (Auto) 0.0, Baso # (Auto) 0.0, VBG pH 7.43 H, VBG pCO2 44.0, VBG pO2 57.2 H, VBG HCO3 28.5, VBG Total CO2 29.8 H, VBG O2 Saturation 91.1 H, VBG Base Excess 4.2 H, VBG Lactic Acid 2.0, Sodium 130 L, Potassium 5.7 H, Chloride 100, Carbon Dioxide 26, Anion Gap 9.7, BUN 18 H , Creatinine 0.90, Estimated Creat Clear 45, Estimated GFR 62, Est GFR ( Amer) 76, Glucose 97, Calcium 8.2 L, Total Bilirubin 1.4 H, AST 45 H, ALT 15, Alkaline Phosphatase 74, Troponin I 0.03, NT-Pro-B Natriuret Pep 1660 H, Total Protein 8.0, Albumin 3.9, Globulin 4.1 H, Albumin/Globulin Ratio 1.0 L, Lipase 23, Plasma/Serum Alcohol < 10 05/24/25 16:44: SARS-CoV-2 (PCR) Not detected, Influenza A Untype (PCR) Not detected, Influenza Type B (PCR) Not detected 05/24/25 17:38: Urine Color Yellow, Urine Appearance Clear, Urine pH 6.5, Ur Specific [place] 1.010, Urine Protein Negative, Urine Glucose (UA) Negative, Urine Ketones Negative, Urine Blood Negative, Urine Nitrate Negative, Urine Bilirubin Negative, Urine Urobilinogen 1.0, Ur Leukocyte Esterase Negative, Urine RBC 3-5, Urine WBC None, Ur Squamous Epith Cells None, Urine Bacteria None, Urine Opiates Screen Negative, Urine Methadone Screen Negative, Ur Barbituates Screen Negative, Ur Phencyclidine Scrn Negative, Ur Amphetamines Screen Negative, U Benzodiazepines Scrn Negative, Urine Cocaine Screen Negative, U Marijuana (THC) Screen Negative 05/24/25 21:45: Sodium 136, Potassium 4.4 D, Chloride 99, Carbon Dioxide 28, Anion Gap 13.4, BUN 17, Creatinine 1.00, Estimated Creat Clear 43, Estimated GFR 55 L, Est GFR ( Amer) 67, Glucose 173 H D, Calcium 7.6 L I & O for Last 24 hours: Intake & Output 05/21/25 05/22/25 05/23/25 05/24/25 23:59 23:59 23:59 23:59 Output Total 800 / 800 Balance -800 / -800 Weight 150.593 kg Constitutional Constitutional: no acute distress *Routine HEENT Exam Head: Present normocephalic Eye: Present EOMI and PERRL ENT: Present mucous membranes moist *Routine Neck Exam Neck: Present supple; Absent lymphadenopathy *Routine Respiratory Exam Respiratory: Present decreased breath sounds and normal respiratory effort Comments: Oxygenating well on 2 L nasal cannula *Routine Cardiovascular Exam Cardiovascular: Present RRR Comments: +2 pitting edema bilateral lower extremities *Routine Abdominal Exam Abdominal: Present soft, normoactive bowel sounds and tenderness (Mild epigastric TTP) *Routine Rectal Exam Rectal:: deferred *Routine Genitalia Exam Genitalia:: deferred *Routine Extremities Exam Extremities: Absent cyanosis, clubbing or edema *Routine Skin Exam Skin: Present warm; Absent rash *Routine Neurological Exam Neurological: Present alert and oriented X3 Assessment and Plan *Assessment and plan (1) Diverticul disease small and large intestine, no perforati or abscess: Status: Acute Category: Medical Code(s): K57.50 - Diverticulosis of both small and large intestine without perforation or abscess without bleeding (2) Hypoxia: Status: Acute Category: Medical Code(s): R09.02 - Hypoxemia (3) Volume overload: Status: Acute Qualifiers: Hypervolemia type: unspecified Qualified Code(s): E87.70 - Fluid overload, unspecified Category: Medical Code(s): E87.70 - Fluid overload, unspecified (4) Hypothyroidism: Status: Acute Qualifiers: Hypothyroidism type: acquired Qualified Code(s): E03.9 - H ypothyroidism, unspecified Category: Medical Code(s): E03.9 - Hypothyroidism, unspecified (5) Hyperkalemia: Status: Acute Category: Medical Code(s): E87.5 - Hyperkalemia Plan This is a [id number]-year-old female with a past medical history of CVA, DM2, hypothyroidism who presents emergency department with complaints of altered mental status. Was found to have mild uncomplicated diverticulitis as well as new hypoxia requiring 3 L nasal cannula. Appears to have mild volume overload. Admitted for further evaluation and management #Diverticulitis Reports epigastric pain and episode of vomiting and diarrhea. CT with evidence of mild uncomplicated diverticulitis Will initiate Rocephin at this time although does not appear overtly infectious. Mild tenderness on exam but no guarding noted #Hypoxia #Volume overload Chest imaging small left pleural effusion and mild atelectasis. New hypoxia requiring 2 L nasal cannula. Diminished lung sounds noted. COVID and flu negative Patient does take Lasix at home but states that she does not have a formal history of heart failure. Patient is mildly encephalopathic so unsure of the validity of the statement. Will obtain echocardiogram in a.m. Received Lasix 40 mg in the emergency department with robust 800 cc of urine output noted Continue strict intake and output via pure wick Low-sodium diet Daily weights 1500 mL fluid restriction Continue daily Lasix IV #Metabolic encephalopathy Patiently mildly confused as her own medical history but otherwise awake alert and oriented x 3 Hypoxia may have been contributing factor Continue to reorient as needed Does take home medications including gabapentin and reported hydrocodone. Will hold these given mild altered mental status on arrival #Hyperkalemia Initial potassium of 5.7 but after IV diuresis down to 4.4 Renal function stable #Hyponatremia Sodium mildly low at 130 on admission, likely hypervolemic hyponatremia Improved to 136 after IV diuresis Continue to monitor BMP daily #DM2 Continue long-acting and sliding scale insulin #History of CVA Reported history of CVA per patient, on Brilinta 60 mg daily and rosuvastatin 20 mg daily No focal deficits noted on exam. Encephalopathy is more global but appears to be improving No concern for acute ischemia #Hypothyroidism Check TSH and free T4 Continue levothyroxine 112 mcg p.o. daily Full code DVT PPx Lovenox Low-sodium diet
[2025-05-25] VITALS: BP 117/47; PULSE 85; RESP 14; TEMP 37.4; O2SAT 97
[2025-05-25] MEDS: ONDANSETRON 4MG/2ML VIAL 4 MG IV (03:14)
[2025-05-25 04:00] VITALS: BP 108/58; PULSE 85; RESP 18; TEMP 36.9; O2SAT 98; BMI 58.4
--- NOTE | 2025-05-25 04:05 | PC.NURSE ---
Patient is alert and oriented, patient seems to have some intermittent confusion, but easily reoriented. Patient did complain of nausea, treated per mar, no vomiting noted. Patient tested positive for rhino, placed in droplet precautions. Uses purewick and patient is incontinent using brief, patient some times can express the need to use bedside commode. Patient on 2L NC for comfort due to SOA, O2 sat >90%. Lung sounds diminished. Patient home meds brought with her via EMS, scheduled counted with 2 nurse verification and locked in lock box, other medications locked in grinder carbon plant patient room. Dry, red skin noted to bilateral lower extremities. Patient states she mainly uses a wheelchair at home, but can stand and pivot in and out of it. No other complaints from patient this shift. IV abx given to patient per AUG. Call light in reach.
[2025-05-25 07:18] LABS: Hematocrit 31.7 % (37.0-47.0); Immature Granulocytes % 0.3 %; Mean Corpuscular HGB Conc 31.2 g/dL (31.8-35.4); Mean Corpuscular Hemoglobin 28.8 pg (27.0-31.2); Mean Corpuscular Volume 92.2 fl (81-99); Nucleated Red Blood Cells % 0 %; Platelet Count 169 K/mm3 (142-424); Red Blood Count 3.44 M/mm3 (4.20-5.40); Red Cell Distribution Width-SD 46.1 fL; White Blood Count 7.8 K/mm3 (4.8-10.8)
[2025-05-25 07:25] LABS: Chloride 101 mmol/L (98-107)
[2025-05-25 07:26] LABS: Potassium 4.4 mmoL/L (3.5-5.1); Sodium 135 mmol/L (136-145)
[2025-05-25 07:29] LABS: Anion Gap 12.4 mEq/L (5-15); Blood Urea Nitrogen 20 mg/dl (7-17); Calcium 7.3 mg/dl (8.4-10.2); Carbon Dioxide 26 mmol/L (22.0-30.0); Creatinine Clearance Estimated 39 mL/min (50-200); Creatinine,Serum 1.10 mg/dl (0.52-1.04); Estimated Glomerular Filt Rate 50 ml/min (>60); GFR (African American) 60 ML/MIN (>60); Glucose 151 mg/dl (74-100)
[2025-05-25 07:42] LABS: Hemoglobin 9.9 g/dL (12.2-16.2)
[2025-05-25 08:00] VITALS: BP 126/60; PULSE 55; RESP 16; TEMP 36.7; O2SAT 96
--- NOTE | 2025-05-25 08:00 | CA_ITS ---
APPROVED REPORT EXAM: Comprehensive 2D, Doppler, and color-flow Echocardiogram with contrast Floor Layer Helper: Mar Pollard CRT Ht: 5 ft 3 in Wt: 300lbs BSA: 2.30 BP: 126/53 mmHg Indications: CVA/TIA, Diabetes, Pleural Effusion Limited images pt very tender to touch, definity given. TDE due to body habitus Echo Enhancing Agent Indication: Endocardial border delineation Agent(s) / Amount(s) Used: Definity 2 cc Comments: Definity given 2D Dimensions LA Volume 51.40 mL LA Volume Index 21.90 mL/m2 (M/F) 16-34 M-Mode Dimensions RVDd 2.43 cm (0.9-2.6) LA Diam 3.47 cm (1.9-4.0) LVDd 4.55 cm (3.5-5.7) LVDs 2.46 cm (3.5-5.7) IVSd 1.69 cm (0.6-1.1) PWd 0.96 cm (0.6-1.1) EF (Teich) 77.40% FS 45.90% EDV (Teich) 94.90 mL TAPSE 1.66 (<1.7) ESV (Teich) 21.40 mL LV Diastology E Decel Time 347 (160-240 msec) E/A Ratio 0.91 MED A' 7.60 cm/s LAT A' 8.40 cm/s Aortic Valve AO Peak GR. 4.70 mmHg Mitral Valve MV A Velocity 147.0 (40-130 cm/s) E/A Ratio 0.91 Tricuspid Valve TR P. Velocity 128.00 cm/s RAP Estimate 10.00 mmHg RVSP 16.50 mmHg Left Ventricle The left ventricle is normal size. Left ventricular systolic function is normal. The left ventricular ejection fraction is within the normal range. There is normal left ventricular wall thickness. There is normal LV segmental wall motion. Transmitral Doppler flow pattern suggests impaired LV relaxation. No left ventricle thrombus noted on this study. LVEF is 55% Right Ventricle The right ventricle is mildly dilated. The right ventricular systolic function is normal. Atria Left atrium is mildly dilated. Right atrium is mildly dilated. There is no color Doppler evidence of interatrial shunt. Aortic Valve The aortic valve opens well. There is no hemodynamically significant aortic valvular stenosis. No aortic regurgitation is present. Mitral Valve The mitral valve is normal in structure. No evidence of mitral valve stenosis. Trace mitral regurgitation is present. Tricuspid Valve The tricuspid valve leaflets are thin and pliable. Trace tricuspid regurgitation. There is insufficient TR jet to estimate RVSP. Pulmonic Valve The pulmonary valve is grossly normal in structure. Trace pulmonic valve regurgitation is present. Great Vessels The aortic root is normal in size. IVC is normal in size and collapses >50% with inspiration. Pericardium There is no pericardial effusion. Other Information Study Quality: Technically Difficult Conclusion Normal biventricular systolic function. Mild RV dilation. Mild biatrial dilation. No significant valvular stenosis or regurgitation. Electronically signed by : Roseanna Roth MD 05/25/2025 13:32:49
[2025-05-25] MEDS: DEFINITY US ECHO CONTRAST 2ML INJ 2 MG IV (08:56)
--- NOTE | 2025-05-25 09:25 | HMH.PHAAMS2 ---
- Antimicrobial Stewardship Review culture & sensitivity review Stewardship interventions: culture & sensitivity review, reviewed - no change Comments: URINE CX PENDING, SPUTUM UNCOLLECTED, STARTED ON ROCEPHIN EMPIRICALLY FOR DIVERTICULITIS.
[2025-05-25] MEDS: CITALOPRAM 40MG TABLET 40 MG PO (09:27)
[2025-05-25] MEDS: LEVOTHYROXINE 112MCG (0.112MG) TAB 112 MCG PO (09:27)
[2025-05-25] MEDS: guaiFENesin 600 MG TAB.ER.12H PO ×2 (09:27→20:49)
[2025-05-25] MEDS: FUROSEMIDE 40MG/4ML VIAL 40 MG IV ×2 (09:27→17:41)
[2025-05-25] MEDS: humaLOG MIX 75/25 3ML FLEXPEN 50 UNIT SUBCUT ×2 (09:34→20:50)
[2025-05-25 09:55] LABS: POC Glucose,Bedside 227 gm/dL (70-110)
--- NOTE | 2025-05-25 09:55 | HMH.PTEV ---
Physical Therapy Evaluation Rehab PT IP Evaluation Start: 05/24/25 21:41 Freq: ONCE Status: Active Protocol: Document 05/25/25 09:40 SKYLER (Rec: 05/25/25 09:44 SKYLER [id number]) Subjective/History History History Per H&P: This is a 65-year-old female with no reported history but is on medications for presumed CVA, ( Brilinta and statin), heart failure (Lasix), DM 2 on insulin, iron supplementation, hypothyroidism who presents to the emergency department today for shortness of breath. Is unclear who called EMS since patient lives alone but it was reported that she was experiencing shortness of breath, epigastric and nausea . She send reports going to religious this morning and suddenly began to experience chills. Also states she did have an episode of diarrhea today. She denies shortness of breath, chest pain. Per EMS, house was well-kept and not in disarray Emergency department workup notable for hypoxia with oxygen saturation in the high 80s requiring 3 L nasal cannula, potassium of 5.7, sodium of 130, proBNP of 1660, COVID and flu negative. CTA of the chest with small left pleural effusion and mild atelectasis. CT of the abdomen notable for debris about the esophagus concerning for acid reflux, fat stranding along the diverticulum suspicious for mild uncomplicated diverticulitis. Head CT unremarkable. Given her new hypoxia concerning for volume overload as well as mild uncomplicated diverticulitis, it was felt she would benefit from hospitalization she is admitted to the hospital service at this time Subjective Subjective PLOF: Used w/c for all mobility. IND with EOB <> w/c transfers via stand-pivot transfer. HOME: Lives alone in home with ramped entrance. ASSIST: Has a friend come 2x weekly to help with bathing tasks. [facility] How much help from another person do you currently need... Turning from your A lot back to your side while in a flat bed without using bedrails? Moving from lying on A lot back to sitting on the side of a flat bed without using bedrails? Moving to and from a A lot bed to a chair ( including a wheelchair)? Standing up from a A little chair using your arms? (e.g., wheelchair, bedside chair) Walking in hospital A lot room? Climbing 3-5 steps Total with a railing? Mobility Score 12 Mobility Level [facility] Mobility 4 Move to chair/commode Mobility Calculator Rehab PT IP Eval Objective Appearance Patient Behavior Appropriate,Cooperative Patient Orientation Person Difficulty following none instructions Speech Pattern Clear Ambulation Patient Able to No Ambulate Balance Ability to Arise Able, uses arms to help Sitting Balance Steady, safe Standing Balance Steady, wide stance Dynamic Sitting Good Balance Ability Dynamic Standing Poor Balance Ability Transfers Bed Transfer Ability Moderate x 1 (50% assist) Sit to Stand Bed Minimal x 1 (25% assist) Transfer Ability Rehab PT IP prob,goals,plan Problems Date of Evaluation: 05/25/25 PT IP Problems Bed Mobility,Transfers,Gait,Balance,Self care,Safety Rehab Potential Rehab Potential Good Plan PT Intervention Plan Bed Mobility,Transfers,Gait,Balance,Self care,Safety, Therapeutic Exercise Other Intervention 1-2 times Plan PT Plan Frequency Daily Duration LOS Discharge Goals Bed Transfer Ability Minimal x 1 (25% assist) Sit to Stand Chair Contact Guard/Hand Hold Transfer Ability Discharge Plan PT Discharge Plan Initial PT evaluation performed. Pt presents below her baseline in functional mobility and would benefit from skilled PT while at [facility]. Pt most appropriate for inpatient rehabilitation facility (IRF) placement upon d/c from [facility] to maximize safety and decrease caregiver burden. Eval Complexity Eval Charge Codes 48102 - Moderate Complexity PHYSICIAN CERTIFICATION: I certify the specified therapy services for Albino Jaeger are required, authorized, and reviewed every 30 days.
--- NOTE | 2025-05-25 10:10 | P.PN_ITS ---
Subjective *Date: 05/25/25 *Time: 13:51 Interval history: Patient appears weak and lethargic. Interactive discussion, answers questions appropriately. Endorses feeling just generally unwell, lungs CTA, dry cough. Patient positive for rhinovirus. Edema noted bilateral lower extremities, patient states this is chronic, PVD noted bilaterally. Patient's had 2 episodes of loose stools today, incontinent. Patient states she is intermittently incontinent. Patient uses electric wheelchair, states she cannot turn and pivot. PT/OT evaluated and recommend placement, patient refused. Medical Exam Vital signs and Labs for Last 24 Hours: Vital Signs Temp Pulse Pulse Resp BP BP Pulse Ox 05/25/25 09:00 05/25/25 08:00 05/25/25 08:00 98.1 F 55 L 16 126/60 96 05/25/25 06:42 05/25/25 05:00 05/25/25 04:00 98.4 F 85 18 108/58 L 98 05/25/25 03:00 05/25/25 00:43 05/25/25 00:00 99.4 F 85 14 117/47 L 97 05/24/25 23:00 05/24/25 21:03 99.2 F 95 H 16 126/53 L 99 05/24/25 21:00 05/24/25 20:43 98.8 F 74 18 144/75 H 05/24/25 20:14 05/24/25 18:30 93 H 164/73 H 99 05/24/25 18:00 96 H 153/73 H 99 05/24/25 17:42 95 H 163/71 H 98 05/24/25 17:00 97 H 139/52 L 98 05/24/25 16:53 97 H 139/46 L 97 05/24/25 16:34 98.5 F 104 H 23 150/49 H 93 L 05/24/25 16:29 100 H 150/49 H 87 L 05/24/25 16:24 101 H 92 L O2 Del Method O2 Flow Rate 05/25/25 09:00 Room Air 05/25/25 08:00 Room Air 05/25/25 08:00 Room Air 05/25/25 06:42 Nasal Cannula 2 05/25/25 05:00 Nasal Cannula 2 05/25/25 04:00 Nasal Cannula 2 05/25/25 03:00 Nasal Cannula 2 05/25/25 00:43 Nasal Cannula 2 05/25/25 00:00 Nasal Cannula 2 05/24/25 23:00 Nasal Cannula 2 05/24/25 21:03 Nasal Cannula 2 05/24/25 21:00 Nasal Cannula 2 05/24/25 20:43 Room Air 05/24/25 20:14 Nasal Cannula 2 05/24/25 18:30 Room Air 05/24/25 18:00 Room Air 05/24/25 17:42 Nasal Cannula 2 05/24/25 17:00 Nasal Cannula 2 05/24/25 16:53 Nasal Cannula 2 05/24/25 16:34 Room Air 05/24/25 16:29 Nasal Cannula 2 05/24/25 16:24 Intake and Output 05/24/25 05/25/25 05/25/25 23:59 07:59 15:59 Intake Total 280 / 280 Output Total 800 / 800 300 / 300 Balance -800 / -620 -20 / -20 Intake: Intake, Oral Amount 180 / 180 Intake, Total IV Amount 100 / 100 Ceftriaxone Sodium 2 gm In 0.9 100 / 100 % Sodium Chloride 100 ml @ 200 mls/hr IV Q24H [facility] Rx#: [id number] Output: Output, Urine Amount 800 / 800 300 / 300 Other: Number of Bowel Movements 2 1 Weight 150.593 kg 149.731 kg Patient Weight 05/25/25 23:59 Weight 149.731 kg Laboratory Results - last 24 hr 05/24/25 16:32: WBC 9.1, RBC 4.03 L, Hgb 11.7 L, Hct 36.0 L, MCV 89.3, MCH 29.0, MCHC 32.5, RDW 13.7, Plt Count 219, MPV 10.3, Neut % (Auto) 86.3 H, Lymph % (Auto) 8.4 L, Izard % (Auto) 4.6, Eos % (Auto) 0.3, Baso % (Auto) 0.1, Neut # (Auto) 7.8, Lymph # (Auto) 0.8, Izard # (Auto) 0.4, Eos # (Auto) 0.0, Baso # (Auto) 0.0, VBG pH 7.43 H, VBG pCO2 44.0, VBG pO2 57.2 H, VBG HCO3 28.5, VBG Total CO2 29.8 H, VBG O2 Saturation 91.1 H, VBG Base Excess 4.2 H, VBG Lactic Acid 2.0, Sodium 130 L, Potassium 5.7 H, Chloride 100, Carbon Dioxide 26, Anion Gap 9.7, BUN 18 H, Creatinine 0.90, Estimated Creat Clear 45, Estimated GFR 62, Est GFR ( Amer) 76, Glucose 97, Calcium 8.2 L, Total Bilirubin 1.4 H, AST 45 H, ALT 15, Alkaline Phosphatase 74, Troponin I 0.03, NT-Pro-B Natriuret Pep 1660 H, Total Protein 8.0, Albumin 3.9, Globulin 4.1 H, Albumin/Globulin Ratio 1.0 L, Lipase 23, Plasma/Serum Alcohol < 10 05/24/25 16:44: SARS-CoV-2 (PCR) Not detected, Influenza A Untype (PCR) Not detected, Influenza Type B (PCR) Not detected 05/24/25 17:38: Urine Color Yellow, Urine Appearance Clear, Urine pH 6.5, Ur Specific [place] 1.010, Urine Protein Negative, Urine Glucose (UA) Negative, Urine Ketones Negative, Urine Blood Negative, Urine Nitrate Negative, Urine Bilirubin Negative, Urine Urobilinogen 1.0, Ur Leukocyte Esterase Negative, U rine RBC 3-5, Urine WBC None, Ur Squamous Epith Cells None, Urine Bacteria None, Urine Opiates Screen Negative, Urine Methadone Screen Negative, Ur Barbituates Screen Negative, Ur Phencyclidine Scrn Negative, Ur Amphetamines Screen Negative, U Benzodiazepines Scrn Negative, Urine Cocaine Screen Negative, U Marijuana (THC) Screen Negative 05/24/25 21:15: Chlamy pneumoniae PCR Not detected, Adenovirus (PCR) Not detected, B. pertussis DNA (PCR) Not detected, Coronavirus OC43 (PCR) Not detected, Coronavirus HKU1 (PCR) Not detected, Coronavirus 229E (PCR) Not detected, SARS-CoV-2 (PCR) Not detected, Coronavirus NL63 (PCR) Not detected, Human Metapneumovir PCR Not detected, Influenza A (H1) PCR Not detected, Influ A (H1N1/09) PCR Not detected, Influenza A (H3) PCR Not detected, Influenza Type A (PCR) Not detected, Influenza Type B (PCR) Not detected, M. pneumoniae (PCR) Not detected, Parainfluenza 1 (PCR) Not detected, Parainfluenza 2 (PCR) Not detected, Parainfluenza 3 (PCR) Not detected, Parainfluenza 4 (PCR) Not detected, RSV (PCR) Not detected, Entero/Rhino (PCR) Detected A 05/24/25 21:45: Sodium 136, Potassium 4.4 D, Chloride 99, Carbon Dioxide 28, Anion Gap 13.4, BUN 17, Creatinine 1.00, Estimated Creat Clear 43, Estimated GFR 55 L, Est GFR ( Amer) 67, Glucose 173 H D, Calcium 7.6 L 05/25/25 05:38: WBC 7.8, RBC 3.44 L, Hgb 9.9 L D, Hct 31.7 L, MCV 92.2, MCH 28.8, MCHC 31.2 L, RDW 13.7, Plt Count 169, MPV 10.1, Neut % (Auto) 75.1, Lymph % (Auto) 16.8, Izard % (Auto) 7.5, Eos % (Auto) 0.0 L, Baso % (Auto) 0.3, Neut # (Auto) 5.9, Lymph # (Auto) 1.3, Izard # (Auto) 0.6, Eos # (Auto) 0.0, Baso # (Auto) 0.0, Sodium 135 L, Potassium 4.4, Chloride 101, Carbon Dioxide 26, Anion Gap 12.4, BUN 20 H, Creatinine 1.10 H, Estimated Creat Clear 39, Estimated GFR 50 L, Est GFR ( Amer) 60, Glucose 151 H, Calcium 7.3 L 05/25/25 09:34: POC Glucose 227 H I & O for Labs for Last 24 Hours: Intake & Output 05/22/25 05/23/25 05/24/25 05/25/25 23:59 23:59 23:59 23:59 Intake Total 280 / 280 Output Total 800 / 800 300 / 300 Balance -800 / -620 -20 / -20 Weight 150.593 kg 149.731 kg Constitutional: Present no acute distress, morbidly obese, chronically ill appearing and cooperative Head: Present atraumatic Eyes: Present as per HPI ENT: Present normal exam Neck: Present normal inspection Respiratory: Present CTA bilaterally, distant breath sounds and normal respiratory effort; Absent wheezes or crackles Cardiac: Present Reg Rate and Rhythm GI: Present soft and normal bowel sounds; Absent distention or tenderness Rectal (female): Present deferred (female): Present deferred Extremities: Present normal inspection, tenderness and edema Skin: Present intact, dry and warm; Absent rash Comment:: Scarring, hyperpigmentation of bilateral lower extremities on shins from PVD Neuro: Present awake and oriented x 3 Assessment and Plan *Assessment and plan (1) Diverticul disease small and large intestine, no perforati or abscess: Status: Acute Category: Medical Code(s): K57.50 - Diverticulosis of both small and large intestine without perforation or abscess without bleeding (2) Hypoxia: Status: Acute Category: Medical Code(s): R09.02 - Hypoxemia (3) Volume overload: Status: Acute Qualifiers: Hypervolemia type: unspecified Qualified Code(s): E87.70 - Fluid overload, unspecified Category: Medical Code(s): E87.70 - Fluid overload, unspecified (4) Hypothyroidism: Status: Acute Qualifiers: Hypothyroidism type: acquired Qualified Code(s): E03.9 - Hypothyroidism, unspecified Category: Medical Code(s): E03.9 - Hypothyroidism, unspecified (5) Hyperkalemia: Status: Acute Category: Medical Code(s): E87.5 - Hyperkalemia Plan Ms. Jaeger is a 65 yr old female with a past medical history of CVA, DM2, hypothyroidism who presents emergency department with complaints of altered mental status. Was found to have mild uncomplicated diverticulitis as well as new hypoxia requiring 3 L nasal cannula. Appears to have mild volume overload. Hospital medicine was consulted for admission, plan of care as follows: #Diverticulitis ? On admission patient reported epigastric pain and 1 episode of vomiting and loose stools. Reassessment this morning patient denies any abdominal pain, nausea, vomiting. Has had 2 episodes of loose stools today.. ? CT with evidence of mild uncomplicated diverticulitis ? No leukocytosis noted on CBC, no fever, chills. Patient initiated on Rocephin 2 g IV daily. #Weakness ?Patient was evaluated by PT/OT who recommended placement. Patient is at baseline in an electric wheelchair and can stand and pivot to use the bathroom or transfer. Patient declined PT/OT, states she would except home health services, care management working on setting those up. Anticipate discharge home tomorrow. #Hypoxia, resolved #Volume overload ? Chest imaging small left pleural effusion and mild atelectasis. ? On admission patient was hypoxic requiring 2-3 L nasal cannula, lung sounds diminished, complicated by her body habitus. Patient currently on room air O2 saturation greater than 95%. Patient denies dyspnea, endorses dry cough. Patient tested positive for rhinovirus on viral panel. ? Patient is prescribed Lasix 40 mg daily at home, but does not endorse diagnosis of CHF. Echo shows EF of 55%, normal biventricular systolic function, mild RV dilation, mild biatrial dilation. ? Continuing Lasix 40 mg twice daily. Monitoring strict I's and O's. Patient has PureWick in place. #Metabolic encephalopathy ? On admission patient mildly confused as her own medical history but otherwise awake alert and oriented x 3, assessment today reveals patient is oriented x 3, answers questions appropriately. Patient does appear lethargic and endorses being tired, likely related to positive rhinovirus. #Hyperkalemia ? Initial potassium of 5.7 but after IV diuresis down to 4.4, repeat this morning 4.3. ? Renal function stable, creatinine 1.1. #Hyponatremia ? Sodium mildly low at 130 on admission, likely hypervolemic hyponatremia. Repeat today 135. ? CBC, BMP ordered for the a.m. #DM2 ? Continue long-acting and sliding scale insulin, ACHS fingersticks, A1c pending. #History of CVA ? Reported history of CVA per patient, continue home medication of Brilinta 60 mg twice daily and rosuvastatin 20 mg daily. ? No focal deficits on exam, no concern for acute ischemia. #Hypothyroidism ? Continue levothyroxine 112 mcg p.o. daily, TSH 1.31. #Morbid obesity ? Patient is morbidly obese, BMI 58.5. Discussed healthy goals, increased exercise, modified diet. Obesity complicates all aspects of care Full code DVT?Lovenox Low-sodium diet Up with assistance
[2025-05-25] MEDS: FERROUS SULFATE 325MG TABLET 325 MG PO (11:24)
--- NOTE | 2025-05-25 11:35 | HMH.OTEV ---
OT Evaluation Rehab OT IP Evaluation Start: 05/24/25 21:41 Freq: ONCE Status: Active Protocol: Document 05/25/25 10:54 [facility] (Rec: 05/25/25 11:34 [facility] [id number]) Rehab OT IP Assessment Subjective History Per H&P: This is a 65-year-old female with no reported history but is on medications for presumed CVA, ( Brilinta and statin), heart failure (Lasix), DM 2 on insulin, iron supplementation, hypothyroidism who presents to the emergency department today for shortness of breath. Is unclear who called EMS since patient lives alone but it was reported that she was experiencing shortness of breath, epigastric and nausea . She send reports going to anglican this morning and suddenly began to experience chills. Also states she did have an episode of diarrhea today. She denies shortness of breath, chest pain. Per EMS, house was well-kept and not in disarray Emergency department workup notable for hypoxia with oxygen saturation in the high 80s requiring 3 L nasal cannula, potassium of 5.7, sodium of 130, proBNP of 1660, COVID and flu negative. CTA of the chest with small left pleural effusion and mild atelectasis. CT of the abdomen notable for debris about the esophagus concerning for acid reflux, fat stranding along the diverticulum suspicious for mild uncomplicated diverticulitis. Head CT unremarkable. Given her new hypoxia concerning for volume overload as well as mild uncomplicated diverticulitis, it was felt she would benefit from hospitalization she is admitted to the hospital service at this time Subjective PLOF: Used w/c for all functional mobility tasks. Pt claims she was independent with getting to EOB <> w/c transfers via stand-pivot transfer. She does have a hospital bed at home. HOME: Lives alone in home with ramped entrance. ASSIST: Has a friend come 2x weekly to help with ADL tasks such as bathing and dressing. Pt dependent for IADLS. Objective Patient Orientation Person,Place,Birthday Right Upper WFL Extremity Gross ROM Left Upper Extremity WFL Gross ROM Bed Mobility bed mobility-scooting,bed mobility - supine/sit,bed mobility - rolling Assist Level Moderate x 2 (50% assist) Transfer Training Sit/Stand Transfer Assist Level Minimal x 1 (25% assist) Performing Toilet Unable/dependent Hygiene Ability Rehab OT IP prob,goals,plan Problems Date of Evaluation: 05/25/25 OT IP Problems Bed Mobility,Transfers,Balance,Self care,Safety Rehab Potential Rehab Potential Good Equipment Needs Assistive Devices Rolling / Wheeled Walker,Wheelchair Plan OT intervention Plan Bed Mobility,Transfers,Balance,Self care,Safety, Therapeutic Exercise OT Plan Frequency Daily Duration LOS Discharge Goals Bed Mobility Ability Assistance x1 Sit to Stand Chair Contact Guard/Hand Hold Transfer Ability Chair Transfer Contact Guard/Hand Hold Ability Chair Transfer Sit to/from Ambulatory Technique Chair Transfer Rolling Walker Assistive Devices Lower Body Dressing Moderate Assistance Ability Upper Body Dressing Minimal Assistance Ability Performing Toilet Moderate Assistance Hygiene Ability Overall Commode/ Contact Guard Toilet Transfer Ability Discharge Plan OT Discharge Plan Pt will continue to be seen for OT services while at [facility] due to being below baseline at this time with functional transfers and ADL independence. Pt would benefit most from short term rehab at SNF following discharge from hospital. Continued skilled therapy is important in order for patient to improve strength, safety, endurance, ADL independence, and functional transfers to reach PLOF. Eval Complexity Eval Charge Codes 31534 - Moderate Complexity PHYSICIAN CERTIFICATION: I certify the specified therapy services for Albino Jaeger are required, authorized, and reviewed every 30 days.
[2025-05-25 11:48] LABS: Free T4 (Free Thyroxine) 1.39 ng/dl (0.78-2.19)
--- NOTE | 2025-05-25 11:54 | SW/DCPLANNER ---
Addendum entered by Suzie Maradiaga 05/27/25 12:08: Patient called stating that she may now be interested in placement now. Patient then stated home health should be at her house soon and she would like to see how she does w/ them prior to making a final decision regarding placement. I did provide patient w/ my name and number to contact me back directly if she would like for me to work on placement. Addendum entered by Suzie Maradiaga 05/26/25 08:15: I spoke w/ patient this AM to revisit regarding placement. Patient continues to express that she is not interested in placement at time of discharge. Patient is agreeable to home health services and states she has all appropriate DME at home. Patient also stated that she will have transportation home at time of discharge. Original Note: I spoke w/ this patient regarding plans once medically stable for discharge. PT/OT evaluated patient and recommended SNF level of care at time of discharge. After lengthy discussion w/ patient she continues to refuse placement at time of discharge. Patient stated that she does use a wheel chair at home, will have transportation and be able to get in her home and is agreeable to home health services at time of discharge. I did explain the importance of placement w/ this patient and she continues to refuse. I have updated Cheko Eng. CM will continue to follow up w/ patient. Patient could be ready for discharge tomorrow pending no setbacks.
[2025-05-25 12:00] VITALS: BP 126/50; PULSE 70; RESP 16; TEMP 36.6
[2025-05-25 12:16] LABS: Thyroid Stimulating Hormone 1.31 uIU/mL (0.465-4.68)
[2025-05-25] MEDS: GABAPENTIN 300MG CAPSULE 300 MG PO ×2 (13:30→20:49)
--- NOTE | 2025-05-25 13:37 | SW/DCPLANNER ---
Addendum entered by Brittani Giordano 05/26/25 11:18: [facility] is able to accept patient. Kiet Chapman Original Note: Spoke with patient regarding home health services once she is medically stable and ready for discharge. Patient stated that she is interested in home health services and that she does not have a preference in what agency i send her information to. I will fax patient's information to [facility] and will update once i hear back. Kiet Chapman
[2025-05-25 16:00] VITALS: BP 116/53; PULSE 76; RESP 17; TEMP 36.6; O2SAT 92
[2025-05-25 16:25] LABS: Hemoglobin A1C 9.1 % (4.0-6.0)
--- NOTE | 2025-05-25 17:43 | PC.NURSE ---
No acute changes noted this shift. Pt has been diuresing well. Has had 2 loose stools this AM. No other complaints stated. Pt worked with therapy this AM. No other concerns. VSS at this time. Call light within reach.
[2025-05-25 18:35] LABS: POC Glucose,Bedside 80 gm/dL (70-110)
[2025-05-25 20:00] VITALS: BP 128/59; PULSE 77; RESP 18; TEMP 36.9; O2SAT 91
[2025-05-25] MEDS: ACETAMINOPHEN 325MG TAB 650 MG PO (20:49)
[2025-05-25] MEDS: ATORVASTATIN 20MG TABLET 20 MG PO (20:49)
[2025-05-25] MEDS: PANTOPRAZOLE 40MG TABLET 40 MG PO (20:50)
[2025-05-25 21:55] LABS: POC Glucose,Bedside 150 gm/dL (70-110)
[2025-05-25] MEDS: guaiFENesin 200MG/10ML SYRUP UDC 100 MG PO (23:52)
[2025-05-26] VITALS: BP 130/56; PULSE 71; RESP 16; TEMP 36.8; O2SAT 93
[2025-05-26 01:10] LABS: POC Glucose,Bedside 71 gm/dL (70-110)
--- NOTE | 2025-05-26 03:53 | PC.NURSE ---
Alert and oriented, some mild confusion based on rambling. Patient complained of cough and requested medication, treated per aug. Received IV abx per AUG. Uses purewick. Patient has been incontinent of bowel this shift also. Call light in reach.
[2025-05-26 04:00] VITALS: BP 133/54; PULSE 67; RESP 18; TEMP 36.8; BMI 58.4
[2025-05-26 05:30] VITALS: O2SAT 85
[2025-05-26 06:00] VITALS: O2SAT 93
--- NOTE | 2025-05-26 06:19 | PC.NURSE ---
Patient O2 sat during last vital check 85% on room air, patient placed on 2L NC, O2 sat 93%
[2025-05-26] MEDS: LEVOTHYROXINE 112MCG (0.112MG) TAB 112 MCG PO (06:29)
[2025-05-26 08:00] VITALS: BP 134/57; PULSE 74; RESP 18; TEMP 36.5; O2SAT 100
[2025-05-26] MEDS: guaiFENesin 600 MG TAB.ER.12H PO (08:53)
[2025-05-26] MEDS: CITALOPRAM 40MG TABLET 40 MG PO (08:53)
[2025-05-26] MEDS: FERROUS SULFATE 325MG TABLET 325 MG PO (08:53)
[2025-05-26] MEDS: IRBESARTAN 75MG TABLET 37.5 MG PO (08:53)
[2025-05-26] MEDS: FUROSEMIDE 40MG/4ML VIAL 40 MG IV (08:54)
[2025-05-26] MEDS: humaLOG MIX 75/25 3ML FLEXPEN 50 UNIT SUBCUT (08:54)
[2025-05-26] MEDS: GABAPENTIN 300MG CAPSULE 300 MG PO (08:56)
[2025-05-26 09:11] LABS: Chloride 98 mmol/L (98-107); Potassium 3.8 mmoL/L (3.5-5.1); Sodium 141 mmol/L (136-145)
[2025-05-26 09:12] LABS: POC Glucose,Bedside 133 gm/dL (70-110)
[2025-05-26 09:13] LABS: Blood Urea Nitrogen 25 mg/dl (7-17); Creatinine Clearance Estimated 31 mL/min (50-200); Creatinine,Serum 1.40 mg/dl (0.52-1.04); Estimated Glomerular Filt Rate 38 ml/min (>60); GFR (African American) 45 ML/MIN (>60)
[2025-05-26 09:14] LABS: Anion Gap 12.8 mEq/L (5-15); Calcium 7.7 mg/dl (8.4-10.2); Carbon Dioxide 34 mmol/L (22.0-30.0); Glucose 117 mg/dl (74-100)
[2025-05-26 09:19] LABS: Hematocrit 33.1 % (37.0-47.0); Hemoglobin 10.2 g/dL (12.2-16.2); Immature Granulocytes % 0.3 %; Mean Corpuscular HGB Conc 30.8 g/dL (31.8-35.4); Mean Corpuscular Hemoglobin 29.0 pg (27.0-31.2); Mean Corpuscular Volume 94.0 fl (81-99); Nucleated Red Blood Cells % 0 %; Platelet Count 170 K/mm3 (142-424); Red Blood Count 3.52 M/mm3 (4.20-5.40); Red Cell Distribution Width-SD 46.4 fL; White Blood Count 6.9 K/mm3 (4.8-10.8)
--- NOTE | 2025-05-26 09:47 | HMH.PHAAMS2 ---
- Antimicrobial Stewardship Review culture & sensitivity review Stewardship interventions: culture & sensitivity review (PATIENT CURRENTLY ON ROCEPHIN, AFEBRILE, WBC WNL, URINE CX PENDING.)
[2025-05-26] MEDS: 0.9 % SODIUM CHLORIDE 1000ML 500 ML 250 ML IV (09:48)
[2025-05-26] MEDS: ACETAMINOPHEN 325MG TAB 650 MG PO (09:52)
[2025-05-26] MEDS: SODIUM CHLORIDE 3% 15ML NEB 3 ML IH (11:03)
[2025-05-26 11:07] VITALS: PULSE 82; RESP 18
--- NOTE | 2025-05-26 11:10 | P.DS_ITS ---
<Statement entered by Sam Thompson MD - 05/26/25 18:54> Rounded on patient after nurse practitioner. Personally examined and interviewed patient. Agree with exam findings and care plan as documented. General Admission date:: 05/24/25 Discharge date: 05/26/25 HPI HPI HPI: This is a 65-year-old female with no reported history but is on medications for presumed CVA, (Brilinta and statin), heart failure (Lasix), DM 2 on insulin, iron supplementation, hypothyroidism who presents to the emergency department today for shortness of breath. Is unclear who called EMS since patient lives alone but it was reported that she was experiencing shortness of breath, epigastric and nausea. She send reports going to druze this morning and suddenly began to experience chills. Also states she did have an episode of diarrhea today. She denies shortness of breath, chest pain. Per EMS, house was well-kept and not in disarray Emergency department workup notable for hypoxia with oxygen saturation in the high 80s requiring 3 L nasal cannula, potassium of 5.7, sodium of 130, proBNP of 1660, COVID and flu negative. CTA of the chest with small left pleural effusion and mild atelectasis. CT of the abdomen notable for debris about the esophagus concerning for acid reflux, fat stranding along the diverticulum suspicious for mild uncomplicated diverticulitis. Head CT unremarkable. Given her new hypoxia concerning for volume overload as well as mild uncomplicated diverticulitis, it was felt she would benefit from hospitalization she is admitted to the hospital service at this time Hospital Course Hospital Course Hospital Course: Ms. Jaeger is a 65 yr old female with a past medical history of CVA, DM2, hypothyroidism who presents emergency department with complaints of altered mental status. Was found to have mild uncomplicated diverticulitis as well as new hypoxia requiring 3 L nasal cannula. Appears to have mild volume overload. Hospital medicine was consulted for admission, hospital course as follows: #Diverticulitis ? On admission patient reported epigastric pain and 1 episode of vomiting and loose stools. Reassessment this morning patient denies any abdominal pain, nausea, vomiting. Has had 2 episodes of loose stools yesterday, no further loose stools. Patient denies any abdominal pain upon assessment day of discharge. Patient received Rocephin 2 g IV daily during admission, will discharge home with cefdinir 300 mg twice daily for 5 days and Flagyl 3 times daily x 5 days. ? CT with evidence of mild uncomplicated diverticulitis ? No leukocytosis noted on CBC, no fever, chills. #Weakness ?Patient was evaluated by PT/OT who recommended placement. Patient is at baseline in an electric wheelchair and can stand and pivot to use the bathroom or transfer. Patient declined PT/OT, states she would except home health services, home health services set up prior to discharge. #Hypoxia, resolved #Volume overload ? Chest imaging small left pleural effusion and mild atelectasis. ? On admission patient was hypoxic requiring 2-3 L nasal cannula, lung sounds diminished, complicated by her body habitus. Patient currently on room air O2 saturation greater than 95%. Patient has remained on room air since yesterday with O2 saturation greater than 95%. Patient denies dyspnea, endorses dry cough. Patient tested positive for rhinovirus on viral panel. ? Patient is prescribed Lasix 40 mg daily at home, but does not endorse diagnosis of CHF. Echo shows EF of 55%, normal biventricular systolic function, mild RV dilation, mild biatrial dilation. ? Patient to continue Lasix 40 mg daily at discharge. #Metabolic encephalopathy, resolved ? On admission patient mildly confused as her own medical history but otherwise awake alert and oriented x 3, assessment today reveals patient is oriented x 3, answers questions appropriately. Patient appeared lethargic yesterday evening, likely related to respiratory illness. Patient feeling back to baseline day of discharge, interactive, states she feels well. #Hyperkalemia, resolved ? Initial potassium of 5.7 but after IV diuresis down to 4.4, day of discharge 3.8. ? Renal function slightly elevated with a creatinine of 1.4, baseline 1.0. Patient had 500 mL bolus over 2 hours for hydration, patient should have BMP checked at PCP follow-up in 1 week. #Hyponatremia, resolved ? Sodium mildly low at 130 on admission, likely hypervolemic hyponatremia. Stable today at 141. #DM2 ? Continue long-acting and sliding scale insulin, ACHS fingersticks, A1c pending. #History of CVA ? Reported history of CVA per patient, continue home medication of Brilinta 60 mg twice daily and rosuvastatin 20 mg daily. ? No focal deficits on exam, no concern for acute ischemia during admission. #Hypothyroidism ? Continue levothyroxine 112 mcg p.o. daily, TSH 1.31. #Morbid obesity ? Patient is morbidly obese, BMI 58.5. Discussed healthy goals, increased exercise, modified diet. Obesity complicates all aspects of care Total time spent on discharge 38 minutes in counseling, documentation, chart review, and direct care with patient. Exam Data for Last 24 hours Vital signs and Labs for Last 24 Hours: Temp Pulse Resp BP Pulse Ox O2 Del Method O2 Flow Rate 97.7 F 82 18 134/57 L 100 Room Air 2 05/26/25 08:00 05/26/25 11:07 05/26/25 11:07 05/26/25 08:00 05/26/25 08:00 05/26/25 09:00 05/26/25 08:00 Laboratory Results - last 24 hr 05/25/25 05:34: Hemoglobin A1c 9.1 H 05/25/25 05:38: TSH 1.31, Free T4 1.39 05/25/25 17:36: POC Glucose 80 05/25/25 20:51: POC Glucose 150 H 05/26/25 00:59: POC Glucose 71 05/26/25 08:37: WBC 6.9, RBC 3.52 L, Hgb 10.2 L, Hct 33.1 L, MCV 94.0, MCH 29.0, MCHC 30.8 L, RDW 13.7, Plt Count 170, MPV 9.7, Neut % (Auto) 67.7, Lymph % (Auto) 20.6, [place] % (Auto) 8.6, Eos % (Auto) 2.5, Baso % (Auto) 0.3, Neut # (Auto) 4.7, Lymph # (Auto) 1.4, [place] # (Auto) 0.6, Eos # (Auto) 0.2, Baso # (Auto) 0.0, Sodium 141, Potassium 3.8, Chloride 98, Carbon Dioxide 34 H, Anion Gap 12.8, BUN 25 H, Creatinine 1.40 H D, Estimated Creat Clear 31, Estimated GFR 38 L, Est GFR ( Amer) 45 L D, Glucose 117 H, Calcium 7.7 L 05/26/25 08:52: POC Glucose 133 H I & O for Last 24 hours: Intake & Output 05/23/25 05/24/25 05/25/25 05/26/25 23:59 23:59 23:59 23:59 Intake Total 1180 / 1480 760 / 760 Output Total 800 / 800 1800 / 1800 0 / 0 Balance -800 / -620 -620 / -320 760 / 760 Weight 150.593 kg 149.731 kg 149.731 kg Microbiology Reports for the Last 24 Hours: Microbiology 05/24/25 17:38 Urine,Catheterized Urine Culture - Final No growth. Constitutional Constitutional: no acute distress, morbidly obese, chronically ill appearing and cooperative *Routine HEENT Exam Head: Present normocephalic Eye: Present EOMI ENT: Present mucous membranes moist *Routine Neck Exam Neck: Present supple and full ROM; Absent lymphadenopathy *Routine Respiratory Exam Respiratory: Present CTA bilaterally, diminished air movement and normal respiratory effort; Absent wheezes or crackles *Routine Cardiovascular Exam Cardiovascular: Present RRR, Normal S1 and Normal S2 *Routine Abdominal Exam Abdominal: Present soft and normoactive bowel sounds; Absent tenderness *Routine Rectal Exam Patient deferred: visual exam *Routine Exam Patient deferred: external exam *Routine Extremities Exam Extremities: Present edema (Trace bilateral lower extremities); Absent cyanosis or clubbing *Routine Skin Exam Skin: Present intact and dry; Absent rash Comments: Skin discoloration bilateral shins from PVD *Routine Neurological Exam Neurological: Present alert, oriented X3 and normal speech Results Data Completed and Pending Labs on day of discharge: Labs from last 24 hours 05/26/25 05/26/25 05/26/25 08:52 08:37 00:59 WBC 6.9 RBC 3.52 L Hgb 10.2 L Hct 33.1 L MCV 94.0 MCH 29.0 MCHC 30.8 L RDW 13.7 Plt Count 170 MPV 9.7 Neut % (Auto) 67.7 Lymph % (Auto) 20.6 [place] % (Auto) 8.6 Eos % (Auto) 2.5 Baso % (Auto) 0.3 Neut # (Auto) 4.7 Lymph # (Auto) 1.4 [place] # (Auto) 0.6 Eos # (Auto) 0.2 Baso # (Auto) 0.0 Sodium 141 Potassium 3.8 Chloride 98 Carbon Dioxide 34 H Anion Gap 12.8 BUN 25 H Creatinine 1.40 H D Estimated Creat Clear 31 Estimated GFR 38 L Est GFR ( Amer) 45 L D Glucose 117 H POC Glucose 133 H 71 Hemoglobin A1c Calcium 7.7 L TSH Free T4 05/25/25 05/25/25 05/25/25 20:51 17:36 05:38 WBC RBC Hgb Hct MCV MCH MCHC RDW Plt Count MPV Neut % (Auto) Lymph % (Auto) [place] % (Auto) Eos % (Auto) Baso % (Auto) Neut # (Auto) Lymph # (Auto) [place] # (Auto) Eos # (Auto) Baso # (Auto) Sodium Potassium Chloride Carbon Dioxide Anion Gap BUN Creatinine Estimated Creat Clear Estimated GFR Est GFR ( Amer) Glucose POC Glucose 150 H 80 Hemoglobin A1c Calcium TSH 1.31 Free T4 1.39 05/25/25 05:34 WBC RBC Hgb Hct MCV MCH MCHC RDW Plt Count MPV Neut % (Auto) Lymph % (Auto) [place] % (Auto) Eos % (Auto) Baso % (Auto) Neut # (Auto) Lymph # (Auto) [place] # (Auto) Eos # (Auto) Baso # (Auto) Sodium Potassium Chloride Carbon Dioxide Anion Gap BUN Creatinine Estimated Creat Clear Estimated GFR Est GFR ( Amer) Glucose POC Glucose Hemoglobin A1c 9.1 H Calcium TSH Free T4 DS: Diagnosis Discharge Diagnosis (1) Diverticul disease small and large intestine, no perforati or abscess: Status: Acute Code(s): K57.50 - Diverticulosis of both small and large intestine without perforation or abscess without bleeding (2) Hypoxia: Status: Acute Code(s): R09.02 - Hypoxemia (3) Volume overload: Status: Acute Code(s): E87.70 - Fluid overload, unspecified Qualifiers: Hypervolemia type: unspecified Qualified Code(s): E87.70 - Fluid overload, unspecified (4) Hypothyroidism: Status: Acute Code(s): E03.9 - Hypothyroidism, unspecified Qualifiers: Hypothyroidism type: acquired Qualified Code(s): E03.9 - Hypothyroidism, unspecified (5) Hyperkalemia: Status: Acute Code(s): E87.5 - Hyperkalemia (6) Morbid obesity with BMI of 50.0-59.9, adult: Status: Acute Code(s): E66.01 - Morbid (severe) obesity due to excess calories; Z68.43 - Body mass index [BMI] 50.0-59.9, adult Meds Home Medications and Allergies Home Medications ?Medication ?Instructions ?Recorded ?Confirmed ?Type citalopram 40 mg tablet 40 mg PO DAILY 05/24/2501/09 History ferrous sulfate 325 mg (65 mg 325 mg PO DAILY 05/24/25 05/24/25 History iron) tablet (FeroSul) furosemide 40 mg tablet 40 mg PO DAILY 05/24/2501/09 History gabapentin 300 mg capsule 300 mg PO TID 05/24/2505/24 History insulin aspar prot-insulin aspart 50 unit SQ BID 05/2405/24/25 History 100 unit/mL (70-30) subcutaneous pen (Novolog Mix 70-30FlexPen U-100) levothyroxine 112 mcg tablet 112 mcg PO DAILY 05/24/25 05/24/25 History losartan 25 mg tablet 25 mg PO DAILY 05/24/2501/09 History nitroglycerin 0.4 mg sublingual 0.4 mg sublingual Q5M PRN Chest 05/24/25 05/24/25 History tablet Pain omeprazole 40 mg capsule,delayed 40 mg PO DAILY 05/24/25 History release rosuvastatin 20 mg tablet 20 mg PO HS 05/24/25 5 History ticagrelor 60 mg tablet (Brilinta) 60 mg PO BID 05/25/25 History cefdinir 300 mg capsule 300 mg PO BID #10 caps 05/26 Rx metronidazole 500 mg tablet 500 mg PO Q8H #15 tabs 03/12 Rx New Prescriptions to Start Prescriptions: Giovanna Diane Kourtney Allergies Allergy/AdvReac Type Severity Reaction Status Date / Time amoxicillin Allergy Hives Verified 05/24/25 21:21 ciprofloxacin Allergy Hives Verified 05/24/25 21:21 metformin Allergy Rash Verified 05/24/25 21:21 sulfamethoxazole (From Allergy Hives Verified 05/24/25 16:38 Bactrim) trimethoprim (From Bactrim) Allergy Hives Verified 05/24/25 16:38 Discharge Plan Disposition Patient Disposition: Home Health Service Condition: Fair Discharge Order Discharge Orders: Discharge Order (Routine); Ordered 05/26/25 Ordered By: Giovanna Eng Follow up Plan Follow up with: Dee ([facility]),LANCE Rodriguez [Advanced Practice Nurse, Emergency Medicine] - 06/02/25 11:00 am Prescriptions/Medication Reconciliation: New cefdinir 300 mg capsule 300 mg PO BID Qty: 10 0RF metronidazole 500 mg tablet 500 mg PO Q8H Qty: 15 0RF Continued furosemide 40 mg tablet 40 mg PO DAILY Patient Comments: [NO ORIGINAL SIG] citalopram 40 mg tablet 40 mg PO DAILY omeprazole 40 mg capsule,delayed release(DR/EC) 40 mg PO DAILY ferrous sulfate [FeroSul] 325 mg (65 mg iron) tablet 325 mg PO DAILY losartan 25 mg tablet 25 mg PO DAILY nitroglycerin 0.4 mg Tablet, Sublingual 0.4 mg SUBLINGUAL Q5M PRN (Reason: Chest Pain) Rx Instructions: do not exceed 3 doses per episode gabapentin 300 mg capsule 300 mg PO TID Patient Comments: [NO ORIGINAL SIG] levothyroxine 112 mcg tablet 112 mcg PO DAILY rosuvastatin 20 mg tablet 20 mg PO HS ticagrelor [Brilinta] 60 mg tablet 60 mg PO BID Patient Comments: [NO ORIGINAL SIG] insulin asp prt-insulin aspart [Novolog Mix 70-30FlexPen U-100] 100 unit/mL (70-30) insulin pen 50 unit SQ BID Problem Reconciliation Problems Reviewed?: Yes Patient Discharge Instructions ACTIVITY: Continue current activity DIET: continue same diet Patient Instructions: DI for Hyperkalemia, DI for Hypothyroidism, Stop Light Heart Failure Print Language: Prydeinig Providers Primary Care Provider: Provider,Referral Admit Provider: Matthew Sun Attending Provider: Matthew Sun
--- NOTE | 2025-05-26 14:01 | DIET.NUTRFU ---
provided handout on diverticulitis and fiber recommendations
[2025-05-26 14:58] LABS: POC Glucose,Bedside 171 gm/dL (70-110)
--- NOTE | 2025-05-27 12:06 | SW/DCPLANNER ---
Spoke with patient on the phone. Betty stated that she is doing well. Patient stated that she is aware of her upcoming appointments. 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 Patient stated that she might need placement once she got home and i transferred her call to Suzie. Patient stated that she has no concerns or questions at this time. Kiet Chapman
== END 2025-05-26 13:34 | disposition home health service (06) ==
LOC: ER 17:13 → 2ND 20:12
PROVIDERS: Nurse Practitioner Acute Care; Admitting Provider Student in an Organized Health Care Education/Training Program; Emergency Provider Student in an Organized Health Care Education/Training Program; Visit Provider Student in an Organized Health Care Education/Training Program
DX: K57.50 Diverticulosis of both small and large intestine without perforation or abscess without bleeding (principal); R09.02 Hypoxemia; E87.70 Fluid overload, unspecified; E03.9 Hypothyroidism, unspecified; E87.5 Hyperkalemia; E66.01 Morbid (severe) obesity due to excess calories; Z68.43 Body mass index [BMI] 50.0-59.9, adult; Z86.73 Personal history of transient ischemic attack (TIA), and cerebral infarction without residual deficits; E11.9 Type 2 diabetes mellitus without complications; K21.9 Gastro-esophageal reflux disease without esophagitis; Z88.1 Allergy status to other antibiotic agents; Z88.2 Allergy status to sulfonamides; Z88.6 Allergy status to analgesic agent; Z79.899 Other long term (current) drug therapy; Z79.890 Hormone replacement therapy; Z79.4 Long term (current) use of insulin; J90 Pleural effusion, not elsewhere classified; K44.9 Diaphragmatic hernia without obstruction or gangrene
CPT/HCPCS: 0223U; 36415; 70450; 71275; 74177; 80048; 80053; 80307; 80320; 81001; 82803; 82962; 83036; 83690; 83880; 84439; 84443; 84484; 85025; 87086; 87636; 89220; 93005; 93306; 97162; 97166; 97530; 99285; G0378; J0696; J1650; J1938; J2405; J7030; Q9957; Q9967